=== PATIENT | female | born 1970 | race Caucasian/White ===

== ENCOUNTER 2025-06-22 13:26 | Emergency (ER) | payer OTHER, MEDICAID, SELFPAY ==
--- NOTE | ~2025-06-22 | CT_ITS ---
EXAMINATION: CT abdomen pelvis wo con DATE: 06/22/2025 15:01 INDICATION: Clogged nephrostomy tube TECHNIQUE: Computed tomography (CT) of the abdomen and pelvis was performed without intravenous contr ast. Automated exposure control and iterative reconstruction technique were employed. The dose-length product was 364.52 mGy-cm. COMPARISON: None. FINDINGS: Lower thorax: Displaced surgical clip over the dome of the liver. Liver: Normal. Biliary/Gallbladder: Gallbladder is normal. No bile duct dilation. Pancreas: 2 mm calcification in the head of the pancreas, may be secondary to chronic pancreatitis. N o bile or pancreatic duct dilation to suggest choledocholithiasis. Spleen: Normal. Adrenals:No mass. Kidneys: Right renal atrophy and perinephric stranding. Percutaneous right nephrostomy tube, pigtail projects over the inferior pelvis or an inferior calyx. Severe pelviectasis and ureterectasis on the right. GI tract: Mild distal esophageal wall edema and antral thickening. No small or large bowel dilation. Normal appendix. Diverticulosis without diverticulitis. Mesentery/Peritoneum: No ascites, mass, or free air. Retroperitoneum: No mass. Pelvis: Empty urinary bladder. Right adnexal tubal ligation clips. Normal uterus and bilateral ovarie s. 3 mm constipation projecting over the distal right ureter. Punctate calcification in the region of the right UVJ. Soft Tissues: Small uncomplicated fat-containing umbilical hernia. Bones: No acute osseous finding. IMPRESSION: Mild esophagitis/gastritis. Surgical clip over the dome of the liver, likely displaced left tubal ligation clip. Right percutaneous nephrostomy tube, pigtail appears to reside within the inferior pelvis or an infer ior calyx. Severe right hydronephrosis, suggesting tube dysfunction. 2 mm and punctate calcifications in the distal right ureter and UVJ respectively. Reviewed, dictated and finalized at location K. IMPRESSION: Mild esophagitis/gastritis. Surgical clip over the dome of the liver, likely displaced left tubal ligation clip. Right percutaneous nephrostomy tube, pigtail appears to reside within the infer ior pelvis or an inferior calyx. Severe right hydronephrosis, suggesting tube d ysfunction. 2 mm and punctate calcifications in the distal right ureter and UVJ respectivel y.
[2025-06-22 13:31] VITALS: BP 150/81; PULSE 66; RESP 18; TEMP 36.8; O2SAT 100
--- NOTE | 2025-06-22 14:06 | ED_ITS ---
HPI - General Adult General Chief complaint: Urogenital-Female Stated complaint: Clogged nephrostomy Time Seen by Provider: 06/22/25 14:05 Source: patient Mode of arrival: ambulatory Limitations: no limitations History of Present Illness HPI narrative: 54 years old white female came to the ED by private car complaining of right nephrostomy tube is not draining noticed this morning. Patient from [place], history of right kidney cancer, nephrostomy tube since 2019. History of intermittent obstruction of the tube in the last few years. Currently patient complaining of pain at right flank and abdomen, associated with nausea, no fever or chills Related Data Allergies Allergy/AdvReac Type Severity Reaction Status Date / Time No Known Allergies Allergy Verified 06/22/25 13:27 Review of Systems 2 Review of Systems: All systems reviewed & are unremarkable except as noted in HPI and below Exam 2 Narrative: General appearance: Well-developed, well-nourished Skin: Normal color Head: Normocephalic, nontraumatic Eyes: Clear conjunctiva ENT: Oropharynx normal, ears normal, nose normal Neck: Supple, nontender Chest and respiratory: Airway patent, no respiratory distress, no accessory muscle use Heart: Regular rate/rhythm Abdomen: Soft, tenderness right lower quadrant and right flank, nephrostomy tube in place, no organomegaly, quiet bowel sounds . Musculoskeletal: Normal range of motion, nontender back Neurologic: Alert and oriented ?3, [employer] is normal as tested, no gross motor deficit Course Vital Signs Vital signs: Vital Signs Temperature 36.8 C 06/22/25 13:31 Pulse Rate 66 06/22/25 13:31 Respiratory Rate 18 06/22/25 13:31 Blood Pressure 150/81 H 06/22/25 13:31 Pulse Oximetry 100 06/22/25 13:31 Oxygen Delivery Room Air 06/22/25 13:31 Temperature 36.8 C 06/22/25 13:31 Pulse Rate 66 06/22/25 13:31 Respiratory Rate 18 06/22/25 13:31 Blood Pressure 150/81 H 06/22/25 13:31 Pulse Oximetry 100 06/22/25 13:31 Oxygen Delivery Room Air 06/22/25 13:31 Procedures Other Procedure Procedure 1: Other Procedure: Nephrostomy tube obstruction 10 cc normal saline irrigation, followed by aspiration 30 cc of urine, immediate relief of pain at the right flank area, patient tolerated the procedure well, the tube was connected to the bag and good urine draining. Medical Decision Making MDM Narrative Medical decision making narrative: Patient came with right nephrostomy tube obstruction 10 cc normal saline irrigation, with good outcome Patient tolerated the procedure well, complete relieve of the right flank and right abdominal pain immediately. The pt was discharged to home.the pt,s condition upon discharge was fair,education was provided to the pt in reference to the final impression,discharge study results,treatment,prognosis and need for follow up . Vital Signs Vital Signs: Vital Signs Temperature 36.8 C 06/22/25 13:31 Pulse Rate 66 06/22/25 13:31 Respiratory Rate 18 06/22/25 13:31 Blood Pressure 150/81 H 06/22/25 13:31 Pulse Oximetry 100 06/22/25 13:31 Oxygen Delivery Room Air 06/22/25 13:31 Temperature 36.8 C 06/22/25 13:31 Pulse Rate 66 06/22/25 13:31 Respiratory Rate 18 06/22/25 13:31 Blood Pressure 150/81 H 06/22/25 13:31 Pulse Oximetry 100 06/22/25 13:31 Oxygen Delivery Room Air 06/22/25 13:31 Lab Data 06/22/25 14:07 06/22/25 14:07 Labs: Lab Results 06/22/25 Range/Units 14:07 WBC 8.2 (4.5-10.0) K/mm3 RBC 4.27 (4.2-5.4) M/mm3 Hgb 11.9 L (12.0-15.0) g/dL Hct 37.3 (37.0-47.0) % MCV 87.4 (80-100) fl MCH 27.9 (26-34) pg MCHC 31.9 L (32-36) g/dl RDW 13.9 (11.5-14.5) % Plt Count 315 (150-375) k/mm3 MPV 8.5 (7.4-10.4) fl Immature Gran % (Auto) 0.4 (0-0.5) % Neut % (Auto) 73.8 H (45.5-73.1) % Lymph % (Auto) 16.6 L (18.3-44.2) % [place] % (Auto) 8.0 (2.6-8.5) % Eos % (Auto) 0.7 (0-4.4) % Baso % (Auto) 0.5 (0.2-1.2) % Lymph # (Auto) 1.35 (0.9-3.2) K/mm3 [place] # (Auto) 0.7 H (0.1-0.6) K/mm3 Eos # (Auto) 0.1 (0-0.3) K/mm3 Baso # (Auto) 0.0 (0.0-0.1) K/mm3 Abs Immat Gran (auto) 0.03 (0.00-0.031) K/mm3 Absolute Neuts (auto) 6.0 (1.3-6.7) K/mm3 Absolute Nucleated RBC 0.000 (0.0-0.012) K/mm3 Nucleated RBC % 0.0 (0.0-0.2) % Sodium 139 (137-145) mmol/L Potassium 4.2 (3.4-5.0) mmol/L Chloride 105 (98-107) mmol/L Carbon Dioxide 25 (22-30) mmol/L Anion Gap 9 (4-12) mmol/L BUN 14 (7-17) mg/dL Creatinine 1.21 H (0.7-1.0) mg/dL Estim Creat Clear Calc 43 ml/min Estimated GFR 46 L (59 - ) Glucose 116 H (65-110) mg/dL Calcium 8.9 (8.4-10.2) mg/dL Total Bilirubin 0.5 (0.2-1.3) mg/dL AST 24 (14-36) U/L ALT 16 (6-35) U/L Alkaline Phosphatase 72 (38-126) U/L Total Protein 7.3 (6.3-8.2) g/dL Albumin 4.2 (3.5-5.1) g/dL Urine Color Yellow (Yellow) Urine Appearance Clear (Clear) Urine pH 6.0 (5.0-9.0) Ur Specific [place] 1.009 (1.001-1.035) Urine Protein Negative (Negative) mg/dL Urine Glucose (UA) Negative (Negative) mg/dL Urine Ketones Negative (Negative) mg/dL Ur Blood (Man) Negative (Negative) Urine Nitrate Negative (Negative) Urine Bilirubin Negative (Negative) Urine Urobilinogen 0.2 (<2.0) mg/dL Leukocyte Esterase Rfl Trace H (Negative) [place]/UL Urine RBC 0-2 (0-2) /hpf Urine WBC 0-5 (0-3) /hpf Ur Squamous Epith Cells None seen (Few) /hpf Urine Bacteria None seen /hpf Urine Casts 0-2 Critical Care Time Critical Care Time Critical Care Time: No Discharge Plan Discharge Clinical Impression: Obstructed nephrostomy tube Patient Disposition: Home Condition: Improved Instructions: Nephrostomy Tube Care (ED) Additional Instructions: Return if symptoms are worsening , call your family physician for appointment, take Tylenol as as needed for aches and pain, continue home medications. Patient Language: Monegasque Follow-up/Referrals: PHYSICIAN NOT ON STAFF,NONSTAFF [Primary Care Provider] -
[2025-06-22 14:14] LABS: Hematocrit 37.3 % (37.0-47.0); Hemoglobin 11.9 g/dL (12.0-15.0); Immature Granulocyte Percent A 0.4 % (0-0.5); Lymphocytes Absolute Auto 1.35 K/mm3 (0.9-3.2); Mean Corpuscular HGB Conc 31.9 g/dl (32-36); Mean Corpuscular Hemoglobin 27.9 pg (26-34); Mean Corpuscular Volume 87.4 fl (80-100); Nucleated Red Blood Cells Absolute Auto 0.000 K/mm3 (0.0-0.012); Nucleated Red Blood Cells Perc 0.0 % (0.0-0.2); Platelet Count Result 315 k/mm3 (150-375); Red Blood Count 4.27 M/mm3 (4.2-5.4); White Blood Count 8.2 K/mm3 (4.5-10.0)
[2025-06-22 14:17] LABS: Add Urine Microscopic? YES; Appearance Urine Clear (Clear); Glucose Urine UA Negative (Negative); Leukocyte Esterase Ur Trace LEU/UL (Negative); Nitrate Urine Negative (Negative); Non Pathogenic Casts 0-2; Specific Grav Ur 1.009 (1.001-1.035)
--- OUTSIDE RECORDS SUMMARY | 2025-06-22 14:17 | XMS_ITS | Continuity of Care Document ---
Author Name [facility] Address [address] [place] [address] Organization [facility] Care Team Providers Care Director Operations Broadcast Name Role Phone [facility] Unavailable Unavailable Problems Problem Status Onset Date Problem Type Date of Resolution Comments Source Essential hypertension (disorder) 5 Diagnosis Urinary tract infectious disease (disorder) 5 Diagnosis Pyuria (finding) 4 Diagnosis Abdominal pain (finding) Resolved Condition Abnormal uterine bleeding (disorder) Active Condition Anemia (disorder) Resolved Condition Chronic kidney disease stage 3 (disorder) Active Condition Constipation (disorder) Resolved Condition Abnormal ECG (finding) Active Condition Fatigue (finding) Active Condition Hypertensive disorder, systemic arterial (disorder) Active Condition Malignant melanoma (disorder) Resolved Condition Excised in 2008 Malignant tumor of cervix (disorder) Active Condition Mixed anxiety and depressive disorder (disorder) Active Condition Multiple joint pain (finding) Active Condition Muscle weakness (finding) Active Condition Pain of left shoulder region Active Condition Patient encounter status (finding) Active Condition Precordial pain (finding) Resolved Condition Premenstrual dysphoric disorder (disorder) Active Condition Recurrent major depressive episodes, mild (disorder) Active Condition Right flank pain (finding) Active Condition Stoma finding (finding) Active Condition Urinary tract infectious disease (disorder) Resolved Condition Bleeding from vagina (finding) Resolved Condition Verruca plantaris (disorder) Active Condition Generalized anxiety disorder (disorder) Active Condition Depressive disorder (disorder) Active Condition Malignant tumor of cervix (disorder) Diagnosis Mild recurrent major depression (disorder) Diagnosis Procedure carried out on subject (situation) Diagnosis Finding of stoma device (finding) Diagnosis Pain of left shoulder joint (finding) Diagnosis Chronic kidney disease stage 3 (disorder) Diagnosis Long-term current use of drug therapy (situation) Diagnosis Abdominal pain (finding) Diagnosis Surgical follow-up (finding) Diagnosis Encounter for fitting and adjustment of other specified devices Active Diagnosis Malignant neoplasm of cervix uteri, unspecified Active Diagnosis Encounter for fitting and adjustment of other gastrointestinal appliance and device Active Diagnosis Other mechanical complication of nephrostomy catheter, initial encounter Active Diagnosis Encounter for fitting and adjustment of urinary device Active Diagnosis Chronic kidney disease due to hypertension (disorder) Diagnosis Verruca plantaris (disorder) Diagnosis Muscle weakness (finding) Diagnosis Premenstrual dysphoric disorder (disorder) Diagnosis Unspecified abdominal pain Active Diagnosis Encounter for change or removal of drains Active Diagnosis Encounter for attention to other artificial openings of urinary tract Active Diagnosis Procedure carried out on subject (situation) Diagnosis Procedure not done (context-dependent category) Diagnosis Crossing vessel and stricture of ureter without hydronephrosis Active Diagnosis Intra-abdominal and pelvic swelling, mass and lump, unspecified site Active Diagnosis 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) Diagnosis Hydronephrosis with ureteral stricture, not elsewhere classified Active Diagnosis Procedure and treatment not carried out, unspecified reason Active Diagnosis Abnormal ECG (finding) Diagnosis 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) Diagnosis Hydronephrosis (disorder) Diagnosis Urgent desire to urinate (finding) Diagnosis Hydronephrosis (disorder) Diagnosis Disease of bladder (disorder) Diagnosis Abnormal uterine bleeding (disorder) Diagnosis History of urinary tract infection (situation) Diagnosis Procedure carried out on subject (situation) Diagnosis Mechanical complication of genitourinary device (disorder) Diagnosis Leakage from urinary catheter (disorder) Diagnosis Serious reportable event associated with product or device (event) Diagnosis Place of occurrence of accident or poisoning (environment) Diagnosis Acute cystitis (disorder) Diagnosis Bacterial infection due to Pseudomonas (disorder) Diagnosis Bacterial infectious disease (disorder) Diagnosis Serious reportable event associated with product or device (event) Diagnosis Injury due to exposure to external cause (disorder) Diagnosis Drug allergy (disorder) Diagnosis History of malignant neoplasm of cervix (situation) Diagnosis Pyonephrosis (disorder) Diagnosis Complication of procedure (disorder) Diagnosis Anxiety disorder (disorder) Diagnosis Exposure to potentially harmful entity (event) Diagnosis Active movement, function (observable entity) Diagnosis Medications Medication Details Route Status Patient Instructions Ordering Provider Order Date Source Acetaminophen 325 MG / Hydrocodone Bitartrate 5 MG Oral Tablet 1 Tablet(s), Oral, q6h, Scheduled / PRN PRN Pain, Moderate, Refill(s) 0 Active 024 [facility] Allergies, Adverse Reactions, Alerts Substance Category Reaction Severity Reaction type Status Date Reported Comments Source Rocephin Assertion Hives Drug allergy Active [facility] Results Order Name Results Value Reference Range Date Interpretation Comments Source MRI Pelvis MRI Pelvis MRI/MRA Accession # Exam Date/Time Procedure Ordering Provider [id number] 06/13/2025 11:37 CDT MRI Pelvis Cherelle ZHENG, Belinda Davies Reason For Exam (MRI Pelvis) concern for mass on CT Report EXAMINATIO N: MRI of the pelvis without and with IV contrast INDICATION : concern for mass on CT COMPARISON : CT abdomen and pelvis 08/02/2019, 06/07/2023, PET/CT 03/09/2021, 05/13/2020. No recent additional imaging is available for comparison . TECHNIQUE: Multiplana r, multi-sequ ence MRI examinatio n of the pelvis was performed. Contrast agent: Clariscan FINDINGS: UTERUS: Age-approp riate anteverted uterus. Postradiat ion changes in the region of the cervix. No definite cervical mass. No abnormal endometria l thickening . OVARIES/AD NEXA: A 1.5 cm left adnexal cyst. No suspicious adnexal mass. BLADDER/PE LVIC WALL: * In the right pelvis, there is an ill-define d T2 hypointens ity that tracks along the distal right ureter to the right posterolat eral urinary bladder wall (02/22, 01/22). This measures up to 2.3 cm and demonstrat es progressiv e postcontra st enhancemen t that is most pronounced on the delayed phase images (/40), without associated restricted diffusion. Overall findings are suggestive of post radiation changes/fi brosis. Of note, this area has not significan tly changed in size compared to the CT from June 2023 or the PET/CT from March 2021. * Mild irregulari ty of the overlying right posterolat eral bladder wall (-) . * The partially imaged distal right ureter is mildly prominent with mild urothelial thickening . PERITONEUM /EXTRAPERI TONEUM: Trace fluid in the pelvis. LYMPH NODES: No pelvic lymphadeno deidra. VISUALIZED BOWEL: Nondilated . Few colonic diverticul a without findings of acute diverticul itis. VASCULAR STRUCTURES : Unremarkab le. BONES: No suspicious osseous lesion. Postradiat ion bone marrow changes. Sequelae of sacral insufficie ncy fractures. IMPRESSION : 1. Ill-define d T2 hypointens ity in the the right pelvis tracking along the distal right ureter to the right posterolat eral bladder wall MRI/MRA Report which has not changed in size compared to the CT from 2022. Overall MR findings suggestive of fibrotic/p ost radiation changes. Short-term follow-up with PET/CT could be obtained if clinically warranted. 2. Mild irregulari ty of the overlying right posterolat eral urinary bladder wall. Cystoscopi c correlatio n could be obtained. 3. Postradiat ion changes in the region of the cervix. No discrete cervical mass. 4. Other chronic/in cidental findings as detailed in the body of the report. I have personally reviewed the images and attest to the contents of this report. * * *Final Report* * * Electronic ally Signed by: Mervat Fuentes MD Signed on: 06/15/25 18:30 06/13 11:00 :28 [facility] Diagnostic Imaging NextGen IR Nephrostom y Tube Exchange IR Nephrostomy Tube Exchange Interventi onal/Angio Accession # Exam Date/Time Procedure Ordering Provider [id number] 05/31/2025 09:58 CDT IR Nephrostom y Tube Cherelle ZHENG, Belinda Davies Reason For Exam (IR Nephrostom y Tube Exchange) Neph tube exchange Report INDICATION : Obstructiv e uropathy TECHNIQUE: Dilute Visipaque- 320 contrast media are instilled into the existing right 10 [place] nephrostom y tube. Wire was advanced. The tube was removed. A new 10 [place] nephrostom y tube was advanced over the wire and placed in the renal pelvis. Tube was connected to a gravity dependent bag. Patient tolerated procedure well without complicati on. Fluoroscop y time used: 28 seconds IMPRESSION : Fluoroscop ic guided exchange of 10 [place] right nephrostom y tube. No complicati on. * * *Final Report* * * Electronic ally Signed by: Didier Lopez MD Signed on: 05/31/25 19:50 05/31 09:58 :00 [facility] Culture Urine 10,000-49, 000 CFU/ml Serratia marcescens - See susceptibi lity report - 100-1000 CFU/ml Pseudomona s aeruginosa - See susceptibi lity report - 1000-10,00 0 CFU/ml Streptococ cus equi/equis imilis - Sensitivit y Not Indicated 04/11 18:01 :00 [facility] Pseudomonas aeruginosa Pseudomona s aeruginosa 04/11 18:01 :00 [facility] Serratia marcescens Serratia marcescens 04/11 18:01 :00 [facility] IR Nephrostom y Tube Exchange IR Nephrostomy Tube Exchange Interventi onal/Angio Accession # Exam Date/Time Procedure Ordering Provider [id number] 04/11/2025 12:42 CDT IR Nephrostom y Tube Fernandalk Macy PACHECO Exchange Reason For Exam (IR Nephrostom y Tube Exchange) obstructed chronic neph tube Report INDICATION : Obstructed right nephrostom y tube TECHNIQUE: The risk, benefits, and alternativ es of the procedure explained to the patient. Informed written consent was obtained. The patient has had a right nephrostom y tube for approximat thiago 5 years with every 3 month exchanges performed at . Patient has had no drainage from the right nephrostom y tube and recent CT scan that demonstrat es severe hydrourete ronephrosi s with adequate position of the nephrostom y tube. The patient states that several times the nephrostom y tube has had debris and partial clotting with decreased output which improved with exchange. Antegrade nephrostog sunita using Visipaque- 320 contrast media demonstrat es patent tube but requiring forced pressure. Numerous wires including Bentson, Amplatz superstiff , and angled glide are used to try to break up the internal debris without success. Therefore, a Glidewire and glide catheter were advanced through the percutaneo us entry tract along the nephrostom y tube. A new 8 [place] nephrostom y tube was advanced adjacent to the existing tube. Suture from the original nephrostom y tube was cut. The tube was removed with forced pressure under fluoroscop ic guidance. A new 10 [place] nephrostom y tube was placed with the tip coiled in the renal pelvis. The hydronephr osis was evacuated. The tube was secured to the skin with 2-0 silk suture and adhesive dressing. The patient tolerated procedure well without complicati on. Fluoroscop y time used: 9 minutes 24 seconds IMPRESSION : 1. Fluoroscop ic guided exchange of the existing 8 [place] right nephrostom y tube with a 10 [place] nephrostom y tube with tip placed in the renal pelvis. No complicati on. 2. Antegrade nephrostog sunita demonstrat es severe right hydrourete ronephrosi s. 3. Milky, cloudy urine returned and was sent to microbiolo gy. 4. Wire could not be advanced through the existing 8 [place] nephrostom y tube secondary to debris. Therefore, new tube was placed along the percutaneo us entry tract and existing nephrostom y tube was removed with more than gentle pulling. No complicati on. * * *Final Report* * * Electronic ally Signed by: Jessica ZHENG, Didier James Signed on: 04/11/25 16:23 04/11 11:54 :59 [facility] GENERAL CHEMISTRY Estimated GFR for Adults 47 mL/min/1.7 3m 04/11 09:17 :30 Result Comment: The eGFR was estimated using the CKD-EPI equation. The National Kid[employer] recommends that all clinical labs utilize this equation: Scar , Shon LA, Hussein CH, et al. A new equation to estimate glomerular filtration rate. Claire Imaging Science Professor Med. 2009;150(9):6 04-612. For calculation reference see https://www.k dcney.org/pro fessionals/kd oqi/gfr_calcu lator Interpretive Data: Changed to CKD-EPI 2020 on 2020. [facility] GENERAL CHEMISTRY Calcium 8.1 mg/dL 8.3 - 10.6 04/11 09:17 :30 [facility] GENERAL CHEMISTRY Glucose Lvl 102 mg/dL 04/11 09:17 :30 Interpretive Data: No reference ranges have been established for random glucose levels. [facility] GENERAL CHEMISTRY Creatinine, standardized 1.32 mg/dL 0.55 - 1.02 04/11 09:17 :30 [facility] GENERAL CHEMISTRY BUN 18 mg/dL 9 - 04/11 09:17 :30 [facility] GENERAL CHEMISTRY CO2 24.0 mmol/L 20.0 - 31.0 04/11 09:17 :30 [facility] GENERAL CHEMISTRY Chloride 109.0 mmol/L 98.0 - 109.0 04/11 09:17 :30 [facility] GENERAL CHEMISTRY Sodium 140 mmol/L 136 - 145 04/11 09:17 :30 [facility] GENERAL CHEMISTRY Potassium 4.0 mmol/L 3.5 - 5.1 04/11 09:17 :30 [facility] GENERAL CHEMISTRY Anion gap 7 mmol/L 5 - 15 04/11 09:17 :30 [facility] HEMATOLOGY PROFILES MPV 8.9 fL 9.0 - 12.0 04/11 09:17 :30 [facility] HEMATOLOGY PROFILES PLT 216 x10(9)/L 135 - 400 04/11 09:17 :30 [facility] HEMATOLOGY PROFILES RDW CV 14.2 % 11.5 - 14.5 04/11 09:17 :30 [facility] HEMATOLOGY PROFILES MCHC 31.8 g/dL 30.4 - 36.7 04/11 09:17 :30 [facility] HEMATOLOGY PROFILES MCH 28.5 pg 28.0 - 33.0 04/11 09:17 :30 [facility] HEMATOLOGY PROFILES MCV 89.5 fL 81.0 - 96.5 04/11 09:17 :30 [facility] HEMATOLOGY PROFILES HCT 34.9 % 34.5 - 47.0 04/11 09:17 :30 [facility] HEMATOLOGY PROFILES HGB 11.1 g/dL 12.0 - 16.0 04/11 09:17 :30 [facility] HEMATOLOGY PROFILES RBC 3.90 x10(12)/L 4.20 - 5.00 04/11 09:17 :30 [facility] HEMATOLOGY PROFILES WBC 12.71 x10(9)/L 4.80 - 10.80 04/11 09:17 :30 [facility] HEMATOLOGY PROFILES Absolute Neutrophils 10.27 x10(9)/L 1.40 - 6.50 04/11 09:17 :30 [facility] HEMATOLOGY PROFILES % Neutrophils 80.8 % 04/11 09:17 :30 [facility] HEMATOLOGY PROFILES % Monocytes 8.4 % 04/11 09:17 :30 [facility] HEMATOLOGY PROFILES Abs Lymphocytes 1.28 x10(9)/L 1.20 - 3.40 04/11 09:17 :30 [facility] HEMATOLOGY PROFILES % Lymphocytes 10.1 % 04/11 09:17 :30 [facility] HEMATOLOGY PROFILES Abs Immature Granulocytes 0.04 x10(9)/L 0.00 - 0.03 04/11 09:17 :30 [facility] HEMATOLOGY PROFILES % Immature Granulocytes 0.3 % 04/11 09:17 :30 [facility] HEMATOLOGY PROFILES Abs Basophils 0.02 x10(9)/L 0.00 - 0.10 04/11 09:17 :30 [facility] HEMATOLOGY PROFILES % Basophils 0.2 % 04/11 09:17 :30 [facility] HEMATOLOGY PROFILES Abs Eosinophils 0.03 x10(9)/L 0.00 - 0.30 04/11 09:17 :30 [facility] HEMATOLOGY PROFILES % Eosinophils 0.2 % 04/11 09:17 :30 [facility] HEMATOLOGY PROFILES Abs Monocytes 1.07 x10(9)/L 0.00 - 1.00 04/11 09:17 :30 [facility] Culture Urine >100,000 CFU/ml Serratia marcescens #2 - See susceptibi lity report - 50,000-100 ,000 CFU/ml Serratia marcescens - See susceptibi lity report 04/10 22:31 :00 [facility] Serratia marcescens Serratia marcescens 04/10 22:31 :00 [facility] Culture UrineX >100,000 CFU/ml Gram negative rods - Identifica tion and susceptibi lity to follow. 04/10 22:31 :00 [facility] GENERAL CHEMISTRY Calcium 9.1 mg/dL 8.3 - 10.6 04/10 22:02 :00 [facility] GENERAL CHEMISTRY Estimated GFR for Adults 45 mL/min/1.7 3m 04/10 22:02 :00 Result Comment: The eGFR was estimated using the CKD-EPI equation. The National Kidney Foundation recommends that all clinical labs utilize this equation: Scar , Shon LA, Hussein CH, et al. A new equation to estimate glomerular filtration rate. Claire Imaging Science Professor Med. 2009;150(9):6 04-612. For calculation reference see https://www.[facility].org/pro fessionals/kd oqi/gfr_calcu lator Interpretive Data: Changed to CKD-EPI 2020 on 2020. [facility] GENERAL CHEMISTRY Potassium 4.3 mmol/L 3.5 - 5.1 04/10 22:02 :00 [facility] GENERAL CHEMISTRY Sodium 141 mmol/L 136 - 145 04/10 22:02 :00 [facility] GENERAL CHEMISTRY Anion gap 7 mmol/L 5 - 15 04/10 22:02 :00 [facility] GENERAL CHEMISTRY Creatinine, standardized 1.38 mg/dL 0.55 - 1.02 04/10 22:02 :00 [facility] GENERAL CHEMISTRY Glucose Lvl 102 mg/dL 04/10 22:02 :00 Interpretive Data: No reference ranges have been established for random glucose levels. [facility] GENERAL CHEMISTRY BUN 19 mg/dL 9 - 23 04/10 22:02 :00 [facility] GENERAL CHEMISTRY Chloride 108.0 mmol/L 98.0 - 109.0 04/10 22:02 :00 [facility] GENERAL CHEMISTRY CO2 26.0 mmol/L 20.0 - 31.0 04/10 22:02 :00 [facility] HEMATOLOGY PROFILES Abs Eosinophils 0.01 x10(9)/L 0.00 - 0.30 04/10 22:02 :00 [facility] HEMATOLOGY PROFILES % Basophils 0.2 % 04/10 22:02 :00 [facility] HEMATOLOGY PROFILES Abs Basophils 0.03 x10(9)/L 0.00 - 0.10 04/10 22:02 :00 [facility] HEMATOLOGY PROFILES % Neutrophils 85.1 % 04/10 22:02 :00 [facility] HEMATOLOGY PROFILES Absolute Neutrophils 11.62 x10(9)/L 1.40 - 6.50 04/10 22:02 :00 [facility] HEMATOLOGY PROFILES % Immature Granulocytes 0.4 % 04/10 22:02 :00 [facility] HEMATOLOGY PROFILES Abs Immature Granulocytes 0.06 x10(9)/L 0.00 - 0.03 04/10 22:02 :00 [facility] HEMATOLOGY PROFILES % Lymphocytes 7.1 % 04/10 22:02 :00 [facility] HEMATOLOGY PROFILES Abs Lymphocytes 0.97 x10(9)/L 1.20 - 3.40 04/10 22:02 :00 [facility] HEMATOLOGY PROFILES % Monocytes 7.1 % 04/10 22:02 :00 [facility] HEMATOLOGY PROFILES Abs Monocytes 0.97 x10(9)/L 0.00 - 1.00 04/10 22:02 :00 [facility] HEMATOLOGY PROFILES % Eosinophils 0.1 % 04/10 22:02 :00 [facility] HEMATOLOGY PROFILES RBC 4.36 x10(12)/L 4.20 - 5.00 04/10 22:02 :00 [facility] HEMATOLOGY PROFILES HGB 12.6 g/dL 12.0 - 16.0 04/10 22:02 :00 [facility] HEMATOLOGY PROFILES HCT 38.9 % 34.5 - 47.0 04/10 22:02 :00 [facility] HEMATOLOGY PROFILES MCV 89.2 fL 81.0 - 96.5 04/10 22:02 :00 [facility] HEMATOLOGY PROFILES MCH 28.9 pg 28.0 - 33.0 04/10 22:02 :00 [facility] HEMATOLOGY PROFILES MCHC 32.4 g/dL 30.4 - 36.7 04/10 22:02 :00 [facility] HEMATOLOGY PROFILES RDW CV 13.9 % 11.5 - 14.5 04/10 22:02 :00 [facility] HEMATOLOGY PROFILES PLT 248 x10(9)/L 135 - 400 04/10 22:02 :00 [facility] HEMATOLOGY PROFILES MPV 8.9 fL 9.0 - 12.0 04/10 22:02 :00 [facility] HEMATOLOGY PROFILES WBC 13.66 x10(9)/L 4.80 - 10.80 04/10 22:02 :00 [facility] URINALYSIS UA Epithelial Cells 0-10 /lpf 0 - 10 04/10 22:02 :00 [facility] URINALYSIS UA Mucous Present /lpf 04/10 22:02 :00 [facility] URINALYSIS UA Bacteria Few /Hpf 04/10 22:02 :00 [facility] URINALYSIS WBC >100 /Hpf 0 - 5 04/10 22:02 :00 [facility] URINALYSIS RBC 0-5 /Hpf 0 - 5 04/10 22:02 :00 [facility] URINALYSIS COLOR [place] ow *NA* (04/10/25 5:02 PM) 04/10 22:02 :00 [facility] URINALYSIS CLARITY Turbid *ABNORMAL* (04/10/25 5:02 PM) 04/10 22:02 :00 [facility] URINALYSIS SPECIFIC GRAVITY 1.007 1.001 - 1.029 04/10 22:02 :00 [facility] URINALYSIS UA BLOOD Trace 04/10 22:02 :00 [facility] URINALYSIS BILIRUBIN Negative mg/dL 04/10 22:02 :00 [facility] URINALYSIS UA KETONES Negative mg/dL 04/10 22:02 :00 [facility] URINALYSIS UA GLUCOSE Negative mg/dL 04/10 22:02 :00 [facility] URINALYSIS UA LEUKOCYTES Large /Hpf 04/10 22:02 :00 [facility] URINALYSIS UA UROBILINOGEN <=1 mg/dL 04/10 22:02 :00 [facility] URINALYSIS UA NITRITE Negative *NA* (04/10/25 5:02 PM) 04/10 22:02 :00 [facility] URINALYSIS UA PH 5.5 *NA* (04/10/25 5:02 PM) 5.0 - 8.0 04/10 22:02 :00 [facility] URINALYSIS UA PROTEIN Negative mg/dL 04/10 22:02 :[address] [facility] [address] Abdomen and Pelvis w/ Contrast CT Abdomen and Pelvis w/ Contrast CT Scan/CT Angio Accession # Exam Date/Time Procedure Ordering Provider [id number] 04/10/2025 18:[address] Abdomen and Pelvis w/ Glao Shaun HYATT Contrast Reason For Exam (CT Abdomen and Pelvis w/ Contrast) R nephrostom y tube placement Report PROCEDURE INFORMATIO N: Exam: CT Abdomen And Pelvis With Contrast Exam date and time: 04/10/2025 6:01 PM Age: 54 years old Clinical indication : RT flank pain since am, PT has a RT neph tube placed in 2019-most recently replaced 2 months ago; Additional info: R nephrostom y tube placement TECHNIQUE: Imaging protocol: Computed tomography of the abdomen and pelvis with contrast. Radiation optimizati on: All CT scans at this facility use at least one of these dose optimizati on techniques : automated exposure control; mA and/or kV adjustment per patient size (includes targeted exams where dose is matched to clinical indication ); or iterative reconstruc tion. Contrast material: VISI 320; Contrast volume: 75 ml; Contrast route: INTRAVENOU S (IV); COMPARISON : No relevant prior studies available. FINDINGS: Lungs: Visualized lung bases are clear. Liver: There appears to be a surgical clip at the hepatic dome. The liver is otherwise unremarkab le.. Gallbladde r and biliary ducts: No radiopaque stones. No significan t biliary ductal dilatation . Pancreas: Unremarkab le. Spleen: Unremarkab le. Adrenal glands: Unremarkab le. Kidneys and ureters: There is a right-side d percutaneo us nephrostom y tube with the pigtail catheter in the right renal pelvis. There is severe right-side d hydrourete ronephrosi s extending to the level of the bladder. There are several small calcificat ions in the right hemipelvis in the region of the distal ureter, however these do not appear obstructiv e and represent be phlebolith s. There is subtle masslike density in the region of the right ureteroves ical junction, suboptimal ly evaluated due to lack of contrast within the right ureter and urinary bladder. There is right-side d perinephri c stranding. The left kidney is unremarkab le. No focal lesion or significan t hydronephr osis is seen on the left. Stomach and bowel: The stomach is distended with fluid, gastric contents, and air. There are mildly prominent fluid-fill ed small bowel loops in the mid to lower abdomen with a few air-fluid levels.The re is a moderate amount of fecal material throughout the colon.Ther e is no significan t bowel dilatation or evidence for obstructio n. Appendix: No evidence of appendicit is. Intraperit wilson space: There is right-side d perinephri c stranding. There is mild presacral edema. No significan t free fluid. No free air. Vasculatur e: The abdominal aorta is normal in caliber. No abdominal aortic aneurysm. Lymph nodes: Unremarkab le. No enlarged lymph nodes. Urinary bladder: Unremarkab le as visualized . Reproducti ve: The uterus is present. There are 2 metallic clips in the right adnexa which could be related to tubal ligation. CT Scan/CT Angio Report Bones/join ts: Intact. No acute fracture. There is straighten ing of the normal lumbar lordosis. There are degenerati ve changes involving the lumbar and visualized lower thoracic spine. Soft tissues: Unremarkab le. IMPRESSION : 1. Right-side d percutaneo us nephrostom y tube in place with severe right-side d hydrourete ronephrosi s. The ureter is dilated to the level of the urinary bladder with subtle masslike density in the region of the right ureteroves ical junction suspicious for neoplasm. This is suboptimal ly evaluated due to lack of contrast within the bladder and right ureter. Delayed imaging or cystoscopy should be considered . 2. Other chronic findings described above. THIS DOCUMENT HAS BEEN ELECTRONIC ALLY SIGNED BY LAURO HARMON MD on 04/10/2025 07:21 PM * * *Final Report* * * Electronic ally Signed by: EBONI ZHENG, Provider Signed on: 04/10/25 19:21 04/10 17:56 :00 [facility] IR Neph Tube Exchange IR Neph Tube Exchange Interventi onal/Angio Accession # Exam Date/Time Procedure Ordering Provider [id number] 02/15/2025 09:58 CDT IR Neph Tube Exchange Monica Pizarro MD Reason For Exam (IR Neph Tube Exchange) R NT EVAL/EXCHA NGE- BLUE TUBE CRACKED/LE AKING AFTER CHANGING CONNECTION AND DRAINAGE BAG Report PROCEDURE( S), 1. Right nephrostom y tube exchange INDICATION : 54-year-ol d female with leaking/cr acked nephrostom y tube, presenting for exchange COMPARISON : Comparison is made to relevant prior imaging OPERATORS: David Farrell i, MD (attending physician) Gabino Álvarez DO (fellow) CONSENT: The risks and benefits of the procedure as well as alternativ es to the procedure were discussed with the patient prior to bringing the patient to the angiograph y suite. Written and oral consent was obtained. PROCEDURE DETAILS: The patient was brought to the angiograph y suite and positioned prone on the fluoroscop y table. A timeout was completed prior to the procedure according to hospital policy. The right flank was prepped and draped in sterile usual fashion. Local anesthetic was administer ed. Antegrade nephrostog sunita was performed through the indwelling nephrostom y tube which demonstrat ed tube retracted into a lower pole calyx. The indwelling nephrostom y tube was exchanged over a stiff angled Glidewire for a new 8 [place] nephrostom y tube. The locking mechanism of the catheter was engaged. Contrast was instilled confirming appropriat e position of the nephrostom y tube in the renal pelvis. The catheter was secured to the skin using nylon 2-0 suture and connected to gravity drainage. A dressing was applied. The patient was discharged home in stable condition. Post-proce dure complicati on and was transferre d to recovery in stable condition. ESTIMATED BLOOD LOSS: < 15 mL SPECIMENS: None COMPLICATI ONS: None The attending physician was present during all critical and kamara portions of the procedure and immediatel y available to furnish services during the entire procedure. IMPRESSION : 1. Technicall y successful right nephrostom y tube exchange for a new 8 [place] [employer] nephrostom y tube. Interventi onal/Angio Report I have personally reviewed the images and attest to the contents of this report. * * *Final Report* * * Electronic ally Signed by: David Farrell i, MD Signed on: 02/15/25 10:37 02/15 09:34 :53 [facility] IR Neph Tube Exchange IR Neph Tube Exchange Interventi onal/Angio Accession # Exam Date/Time Procedure Ordering Provider [id number] 12/24/2024 12:21 [employer] IR Neph Tube Exchange Johnnie Cortes MD Reason For Exam (IR Neph Tube Exchange) R NT EXCHANGE- ROUTINE Report PROCEDURE( S), 1. Right nephrostom y tube exchange INDICATION : Patient presents to interventi onal radiology for routine nephrostom y tube exchange. COMPARISON : Comparison is made to relevant prior imaging OPERATORS: Attending Physician: Shirley Duncan MD Resident Physician: None CONSENT: The risks and benefits of the procedure as well as alternativ es to the procedure were discussed with the patient prior to bringing the patient to the angiograph y suite. Written and oral consent was obtained. PROCEDURE DETAILS: The patient was brought to the angiograph y suite and positioned prone on the fluoroscop y table. A timeout was completed prior to the procedure according to hospital policy. The right flank was prepped and draped in sterile usual fashion. Local anesthetic was administer ed. Antegrade nephrostog sunita was performed through the indwelling nephrostom y tube which demonstrat ed appropriat e positionin g in the renal pelvis. The indwelling nephrostom y tube was exchanged over a stiff angled Glidewire for a new 8 [place] nephrostom y tube. The locking mechanism of the catheter was engaged. Contrast was instilled confirming appropriat e position of the nephrostom y tube in the renal pelvis. Right antegrade nephrostog sunita was performed demonstrat ing unchanged occlusion of the distal right ureter. No evidence of contrast passing beyond this ureteral occlusion into the urinary bladder. The catheter was secured to the skin using nylon 2-0 suture and connected to gravity drainage. A dressing was applied. The patient tolerated the procedure well without evidence of immediate post-proce dure complicati on and was transferre d to recovery in stable condition. ESTIMATED BLOOD LOSS: < 15 mL SPECIMENS: None COMPLICATI ONS: None IMPRESSION : 1. Technicall y successful right nephrostom y tube exchange for a new 8 [place] [employer] nephrostom y tube. I have personally reviewed the images and attest to the contents of Interventi onal/Angio Report this report. * * *Final Report* * * Electronic ally Signed by: Kristen Duncan MD Signed on: 12/24/24 15:30 12/24 11:49 :00 [facility] IR Neph Tube Exchange IR Neph Tube Exchange Interventi onal/Angio Accession # Exam Date/Time Procedure Ordering Provider [id number] 09/12/2024 11:31 [employer] MA[employer] IR Neph Tube Exchange Sebastian ZHENG, Johnnie Yusuf Reason For Exam (IR Neph Tube Exchange) NEPHROSTOG SUNITA + R NT EXCHANGE Report PROCEDURE( S), 1. Right nephrostom y tube exchange INDICATION : Patient presents to interventi onal radiology for routine nephrostom y tube exchange. COMPARISON : Comparison is made to relevant prior imaging OPERATORS: Attending Physician: Monica Pizarro MD Resident Physician: None CONSENT: The risks and benefits of the procedure as well as alternativ es to the procedure were discussed with the patient prior to bringing the patient to the angiograph y suite. Written and oral consent was obtained. PROCEDURE DETAILS: The patient was brought to the angiograph y suite and positioned prone on the fluoroscop y table. A timeout was completed prior to the procedure according to hospital policy. The right flank was prepped and draped in sterile usual fashion. Local anesthetic was administer ed. Antegrade nephrostog sunita was performed through the indwelling nephrostom y tube which demonstrat ed appropriat e positionin g in the renal pelvis. The indwelling nephrostom y tube was exchanged over a stiff angled Glidewire for a new 8 [place] nephrostom y tube. The locking mechanism of the catheter was engaged. Contrast was instilled confirming appropriat e position of the nephrostom y tube in the renal pelvis. Right antegrade nephrostog sunita was performed demonstrat ing unchanged occlusion of the distal right ureter. No evidence of contrast passing beyond this ureteral occlusion into the urinary bladder. The catheter was secured to the skin using nylon 2-0 suture and connected to gravity drainage. A dressing was applied. The patient tolerated the procedure well without evidence of immediate post-proce dure complicati on and was transferre d to recovery in stable condition. ESTIMATED BLOOD LOSS: < 15 mL SPECIMENS: None COMPLICATI ONS: None IMPRESSION : 1. Technicall y successful right nephrostom y tube exchange for a new 8 [place] [employer] nephrostom y tube. 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 Patient reports recurrent pyelonephr itis since she was encouraged to flush the nephrostom y tube regularly. Benefits and risks of flushing the nephrostom y tube were discussed with the patient. Additional ly, Interventi onal/Angio Report alternativ es including frequent nephrostom y tube exchange and/or nephrostom y tube upsize were discussed. The patient requested PRN antibiotic prescripti on as she has had long wait in the ED for treatment of recurrent infections . A PRN quinolone prescripti on was sent to the patient's pharmacy. Risks of fluoroquin olone use including tendon rupture and Janusz sensitivit y were explained to the patient. I have personally reviewed the images and attest to the contents of this report. * * *Final Report* * * Electronic ally Signed by: Juarez ZHENG, Monica Forman Signed on: 09/12/24 11:26 09/12 10:48 :00 [facility] Culture Urine 10,000-49, 000 CFU/ml Pseudomona s aeruginosa - See susceptibi lity report - 10,000-49, 000 CFU/ml Pseudomona s aeruginosa #2 - See susceptibi lity report - Two Morphologi ruben Different Strains 08/19 22:28 :00 [facility] Pseudomonas aeruginosa Pseudomona s aeruginosa 08/19 22:28 :00 [facility] URINALYSIS COLOR Colorless *NA* (08/19/24 5:15 PM) 08/19 22:15 :00 [facility] URINALYSIS CLARITY Clear *NA* (08/19/24 5:15 PM) 08/19 22:15 :00 [facility] URINALYSIS UA GLUCOSE Negative mg/dL 08/19 22:15 :00 [facility] URINALYSIS BILIRUBIN Negative mg/dL 08/19 22:15 :00 [facility] URINALYSIS UA KETONES Negative mg/dL 08/19 22:15 :00 [facility] URINALYSIS SPECIFIC GRAVITY 1.005 1.001 - 1.029 08/19 22:15 :00 [facility] URINALYSIS UA BLOOD Small mg/dL 08/19 22:15 :00 [facility] URINALYSIS UA PH 7.0 *NA* (08/19/24 5:15 PM) 5.0 - 8.0 08/19 22:15 :00 [facility] URINALYSIS UA PROTEIN 30 mg/dL 08/19 22:15 :00 [facility] URINALYSIS UA UROBILINOGEN <=1 mg/dL 08/19 22:15 :00 [facility] URINALYSIS UA NITRITE Negative *NA* (08/19/24 5:15 PM) 08/19 22:15 :00 [facility] URINALYSIS UA LEUKOCYTES Moderate /Hpf 08/19 22:15 :00 [facility] URINALYSIS RBC 0-5 /Hpf 0 - 5 08/19 22:15 :00 [facility] URINALYSIS WBC 31-50 /Hpf 0 - 5 08/19 22:15 :00 [facility] URINALYSIS UA Bacteria Rare /Hpf 08/19 22:15 :00 [facility] URINALYSIS UA Epithelial Cells 0-10 /lpf 0 - 10 08/19 22:15 :00 [facility] URINALYSIS UA Mucous Present /lpf 08/19 22:15 :00 [facility] GENERAL CHEMISTRY T Bili 0.48 mg/dL 0.20 - 1.20 08/19 21:05 :00 [facility] GENERAL CHEMISTRY Anion gap 4 mmol/L 5 - 15 08/19 21:05 :00 [facility] GENERAL CHEMISTRY Potassium 3.9 mmol/L 3.5 - 5.1 08/19 21:05 :00 [facility] GENERAL CHEMISTRY Sodium 139 mmol/L 136 - 145 08/19 21:05 :00 [facility] GENERAL CHEMISTRY Chloride 108 mmol/L 98 - 109 08/19 21:05 :00 [facility] GENERAL CHEMISTRY CO2 27 mmol/L 20 - 08/19 21:05 :00 [facility] GENERAL CHEMISTRY Glucose Lvl 120 mg/dL 08/19 21:05 :00 Interpretive Data: No reference ranges have been established for random glucose levels. [facility] GENERAL CHEMISTRY AST-SGOT 14 U/L 0 - 34 10/13 /2024 21:05 :00 [facility] GENERAL CHEMISTRY ALT-SGPT 15 U/L 10 - 49 08/19 21:05 :00 [facility] GENERAL CHEMISTRY Alkaline Phosphatase 69 U/L 46 - 116 08/19 21:05 :00 [facility] GENERAL CHEMISTRY Total Protein 7.0 g/dL 5.7 - 8.2 08/19 21:05 :00 [facility] GENERAL CHEMISTRY Albumin 4.4 g/dL 3.2 - 4.8 08/19 21:05 :00 [facility] GENERAL CHEMISTRY BUN 14 mg/dL 9 - 23 08/19 21:05 :00 [facility] GENERAL CHEMISTRY Creatinine, standardized 1.40 mg/dL 0.55 - 1.02 08/19 21:05 :00 [facility] GENERAL CHEMISTRY Calcium 8.6 mg/dL 8.3 - 10.6 08/19 21:05 :00 [facility] GENERAL CHEMISTRY GFR for 47 mL/min 08/19 21:05 :00 Interpretive Data: For all ethnicities, normal kidney function is indicated by a value of >60 mL/min/1.73 square meters in patents between 18 and 70 years of age. [facility] GENERAL CHEMISTRY GFR non 39 mL/min 08/19 21:05 :00 Interpretive Data: The eGFR was estimated using the IDDC-traceabl e MDRD Study equation. National Kidney Foundation: K/DOQI clinical practice guidelines for chronic kidney disease: Evaluation, classificatio n and stratificatio n. Am J Kidney Dis 2002; 39(Suppl 1):S1. [facility] HEMATOLOGY PROFILES WBC 8.63 x10(9)/L 4.80 - 10.80 08/19 21:05 :00 [facility] HEMATOLOGY PROFILES RBC 4.21 x10(12)/L 4.20 - 5.00 08/19 21:05 :00 [facility] HEMATOLOGY PROFILES HGB 12.1 g/dL 12.0 - 16.0 08/19 21:05 :00 [facility] HEMATOLOGY PROFILES HCT 37.4 % 34.5 - 47.0 08/19 21:05 :00 [facility] HEMATOLOGY PROFILES MCV 88.8 fL 81.0 - 96.5 08/19 21:05 :00 [facility] HEMATOLOGY PROFILES MCH 28.7 pg 28.0 - 33.0 08/19 21:05 :00 [facility] HEMATOLOGY PROFILES MCHC 32.4 g/dL 30.4 - 36.7 08/19 21:05 :00 [facility] HEMATOLOGY PROFILES RDW CV 14.4 % 11.5 - 14.5 08/19 21:05 :00 [facility] HEMATOLOGY PROFILES PLT 226 x10(9)/L 135 - 400 08/19 21:05 :00 [facility] HEMATOLOGY PROFILES MPV 8.9 fL 9.0 - 12.0 08/19 21:05 :00 [facility] HEMATOLOGY PROFILES % Neutrophils 79.6 % 08/19 21:05 :00 [facility] HEMATOLOGY PROFILES Absolute Granulocytes 6.87 x10(9)/L 1.40 - 6.50 08/19 21:05 :00 [facility] HEMATOLOGY PROFILES % Immature Granulocytes 0.5 % 08/19 21:05 :00 [facility] HEMATOLOGY PROFILES Abs Immature Granulocytes 0.04 x10(9)/L 0.00 - 0.03 08/19 21:05 :00 [facility] HEMATOLOGY PROFILES % Lymphocytes 11.6 % 08/19 21:05 :00 [facility] HEMATOLOGY PROFILES Abs Lymphocytes 1.00 x10(9)/L 1.20 - 3.40 08/19 21:05 :00 [facility] HEMATOLOGY PROFILES % Monocytes 7.3 % 08/19 21:05 :00 [facility] HEMATOLOGY PROFILES Abs Monocytes 0.63 x10(9)/L 0.00 - 1.00 08/19 21:05 :00 [facility] HEMATOLOGY PROFILES % Eosinophils 0.8 % 08/19 21:05 :00 [facility] HEMATOLOGY PROFILES Abs Eosinophils 0.07 x10(9)/L 0.00 - 0.30 08/19 21:05 :00 [facility] HEMATOLOGY PROFILES % Basophils 0.2 % 08/19 21:05 :00 [facility] HEMATOLOGY PROFILES Abs Basophils 0.02 x10(9)/L 0.00 - 0.10 08/19 21:05 :00 [facility] Consultation Notes Results Value Date Source LEGAL EDITOR Oncology Clinic Note Chief Compla int R kidney clogged and infected- May 10, PET and CT had a mass below R kidney Diagnoses Stage IIIC1 SCC of the cervix, recurrent Current Treatment Surveillance Previous Treatment Per initial consult: Ms. 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 Rodriguez for newly diagnosed moderately-differentiated squamous cell carcinoma of the cervix. She presented for evaluation for irregular bleeding described as spotting between cycles for 4 months. She also endorses pelvic pressure, odorous vaginal discharge, and constipation. At the time of presentation, she underwent biopsy on 08/01 that returned showing moderately-differentiated squamous cell carcinoma. On 08/02/19, she had a CT AP showing a 5.9 x 5.6 x 4.3 cm mass in the lower uterine segment/cervix; mildly enlarged bilateral iliac chain nodes worrisome for metastatic disease; and a 4.5 cm left ovarian cyst - 08/01/19: Cervical bx demonstrating moderately-differentiated SCC of the cervix - 10/17/19: Completion of external pelvic beam radiation and vaginal brachytherapy at the [facility]. Her last treatment was October 17, 2019 -11/[address]: interval improvement of cervical mass and left external iliac lymph node. right external iliac node and pelvic side wall nodes resolved. 05/13/2020: PET CT demonstrates interval development of posterior pelvic mass and increasing external iliac chain avidity concerning for new disease -05/20/2020: pelvic mass biopsy with SCC, consistent with recurrence; pt was recommended to initiate chemotherapy at this time, but not desire to proceed at that time -07/07/2020: Initiated Keytruda for recurrent SCC at [facility] -03/09/2021: PET CT: decreased size of right pelvic mass and left external iliac chain nodes -11/11/2021: Keytruda resumed after 2 month break over holidays -02/15/2022: CT CAP with no evidence of disease and stable 4.5cm left ovarian cyst -08/06/2022: CT CAP stopped Keytruda, surveillance - 11/15/2022: NM PET no evidence of disease recurrence - 02/10/2023:NM PET no evidence of disease recurrence - 04/26/2025: NM PET no evidence of disease recurrence History of Present Illness Jonelle Banda is a 53 year old female in clinic today for surveillance of 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 She has had some developments since last visit. She has needed to go more often for a nephrostomy tube (ureter stricture) replacement, it used to be every 3 mo, now it could be up to every 2 mo. She was at the ED 04/11/25 for a tube replacement and UTI. They placed a larger bore this time. She also had a CT scan done it [facility] which showed a suspicious subrenal mass, which was further pursued with a PET at [facility] a few weeks ago. The physician who viewed the PET told her nothing looks hot but recommends for someone to compile her scans. She has continued monitoring for IIIC SCC of the cervix and she has not noticed any developments. She has sometimes has bleeding with the vaginal dilator. She wanted to know what can she do in conjunction with the dilator to retain her vaginal canal depth. She feels like the left and right moy have thickened and become tighter. Review of Systems negative except as noted in HPI Physical Exam Vitals and Measurements T: 37.1 C HR: 65 RR: 16 BP: 111/74 SpO2: 99% WT: 72.8 kg GENERAL: Well-appearing female in no acute distress. HEENT: Normocephalic. Normal hearing. HEART: Regular rate, normal peripheral perfusion. LUNGS: Nonlabored breathing, symmetrical expansion. ABDOMEN: Soft, nontender, nondistended. No masses or organomegaly appreciated. GYNECOLOGIC: Normal appearing external genitalia for age and sex. radiation changes and agglutination. 6cm of vaginal length. EXTREMITIES: No edema in lower extremities. SKIN: No pallor or rash noted. NEUROLOGIC: Alert. No focal neurological deficits. PSYCHIATRIC: Cooperative. Appropriate mood and affect. Clinic Procedure Assessment/Plan 53 yo with Stage IIIC1 Squamous Cell carcinoma of the cervix here for yearly surveillance Moderately-differentiated SCC of the cervix, Stage IIIC1, recurrent -see cancer hx above - pt s/p Keytruda, which she started in June 2020, stopped July 2022 - CT CAP 02/15/22 demonstrates no evidence of disease. Last several NM PET (most recent 02/10/23 also negative for recurrence) in our system - She reports she gets scans every 6 months down at the [place] and all have been negative for disease reoccurrence (last was in April 2025) - BRANT on exam today - we will discontinue pap smears at this time per patient preference - Continue surveillance. RTC 1 yr. - we will refer her to pelvic floor physical therapy at the [facility]. Vaginal bleeding, resolved -previously discussed vaginal spotting most likely 2/2 radiation changes. BRANT at time of last visit. -Previously discussed resuming use of vaginal dilators to help lengthen vagina as pt voiced desire for future intercourse and this may help reduce discomfort. Obstructive nephropathy - pt is s/p nephrostomy tube placement - recent tube exchange April 2025 (getting q3m exchanges) - 04/10/2025 CT abdomen: The ureter is dilated to the level of the urinary bladder with subtle masslike density in the region of the right ureterovesical junction suspicious for neoplasm - appointment scheduled with urology 07/10/2025 to discuss management - MRI pelvis ordered Patient was seen and discussed with attending physician, Dr. Jones Gynecologic Oncology Attending I have seen, interviewed and examined this patient with the resident. I have reviewed all of the labs, imaging studies, and other data. I agree with the above history, physical examination as stated, and the assessment and plan. Jonelle presents for follow up of her recurrent cervical cancer. She has no evidence of disease on exam or by symptoms. We will see her back in 12 months for continued follow up. Problem List/Past Medical History Ongoing Abnormal EKG Abnormal uterine bleeding Annual physical exam CKD (chronic kidney disease) stage 3, GFR 30-59 ml/min Colon cancer screening Depression with anxiety Fatigue Hypertension Immunotherapy Left shoulder pain Major depressive disorder, recurrent, mild Malignant tumor of cervix Muscle weakness Nephrostomy status Plantar wart of right foot PMDD (premenstrual dysphoric disorder) Polyarthralgia Recurrent cervical cancer Right flank pain Historical Abdominal pain Anemia Constipation in female Melanoma Precordial chest pain Urinary tract infectious disease Vaginal bleeding. Procedure/Surgical History Colonoscopy, flexible; diagnostic, including collection of specimen(s) by brushing or washing, when performed (separate procedure) Service Date: 11/14/2021 BTL eye Nephrostomy tube Medications acetaminophen-HYDROcodone(acetaminophen -hydrocodone 325 mg-5 mg oral tablet), 1 Tablet(s), Oral, q6h, PRN DULoxetine(Cymbalta 30 mg oral delayed release capsule), 30 mg= 1 capsule(s), Oral, Daily lisinopril(lisinopril 5 mg oral tablet), 5 mg= 1 Tablet(s), Oral, Daily multivitamin with minerals(PreserVision AREDS oral capsule), 1 capsule(s), Oral, qAM multivitamin with minerals(Adult Multivitamin Gummies) venlafaxine(venlafaxine 225 mg oral tablet, extended release), 1 Tablet(s), Oral, Daily Allergies Rocephin Hives cefTRIAXone Eruption Social History Smoking Status Never smoker Alcohol Frequency:1-2 times per year Has alcohol use interfered with work or home life:No Do you ever drink more than intended:No Has anyone been hurt or at risk by your drinking:No Ready to change:No Concerns about alcohol use in household:No Home/Environment Lives with:Children Living situation:Home/Independent Alcohol abuse in household:No Substance abuse in household:No Smoker in household:No Injuries/Abuse/Neglect in household:No Substance Abuse - Denies Substance Abuse Tobacco Smoking HistoryNever smoker Smokeless TobaccoNo E-Cigarette UseNo Concerns about tobacco use in household:No Does the Pt. visit or live with a smokerNo Is Patient Exposed to E-Cigarette VaporNo Total pack years:0 Previous treatment:None Tobacco/Nicotine CounselingContinue tobacco/nicotine free lifestyle Family History COPD - Chronic obstructive pulmonary disease: Mother. Health Status Family Member(s) Immunizations Vaccine Date Status hepatitis A adult vaccine 08/06/2010 Recorded hepatitis A adult vaccine 04/29/2009 Recorded Health Maintenance Lab Results Diagnostic Results (04/10/2025 18:[address] Abdomen and Pelvis w/ Contrast) IMPRESSION: 1. Right-sided percutaneous nephrostomy tube in place with severe right-sided hydroureteronephrosis. The ureter is dilated to the level of the urinary bladder with subtle masslike density in the region of the right ureterovesical junction suspicious for neoplasm. This is suboptimally evaluated due to lack of contrast within the bladder and right ureter. Delayed imaging or cystoscopy should be considered. 2. Other chronic findings described above. [1] Visit Information Attending Physician: Paramjit Jones MD Primary Care Physician: Anahi Hawkins MD Visit Date: 05/16/2025 [1] CT Abdomen and Pelvis w/ Contrast; [facility] [place] 04/10/2025 18:07 CDT 05/16/2025 Emergency Services Note History Of Prese nt Illness Received patient at handoff pending ED observation evaluation for admission for IR placement in the morning. I agree with previous provider's review of systems and physical exam. Review of Systems Reevaluation/Repeat Exam Vitals and Measurements T: 36.9 C HR: 71 RR: 14 BP: 144/67 SpO2: 94% WT: 73.5 kg Lab Results HEMATOLOGY PROFILES LATEST RESULTS HISTORICAL RESULTS WBC 04/10/25 17:02 13.66 High 08/19/24 8.63 RBC 04/10/25 17:02 4.36 08/19/24 4.21 HGB 04/10/25 17:02 12.6 08/19/24 12.1 HCT 04/10/25 17:02 38.9 08/19/24 37.4 MCV 04/10/25 17:02 89.2 08/19/24 88.8 MCH 04/10/25 17:02 28.9 08/19/24 28.7 MCHC 04/10/25 17:02 32.4 08/19/24 32.4 RDW CV 04/10/25 17:02 13.9 08/19/24 14.4 PLT 04/10/25 17:02 248 08/19/24 226 MPV 04/10/25 17:02 8.9 Low 08/19/24 8.9 Low % Neutrophils 04/10/25 17:02 85.1 08/19/24 79.6 Absolute Granulocytes 04/10/25 17:02 11.62 High 08/19/24 6.87 High % Immature Granulocytes 04/10/25 17:02 0.4 08/19/24 0.5 Abs Immature Granulocytes 04/10/25 17:02 0.06 High 08/19/24 0.04 High % Lymphocytes 04/10/25 17:02 7.1 08/19/24 11.6 Abs Lymphocytes 04/10/25 17:02 0.97 Low 08/19/24 1.00 Low % Monocytes 04/10/25 17:02 7.1 08/19/24 7.3 Abs Monocytes 04/10/25 17:02 0.97 08/19/24 0.63 % Eosinophils 04/10/25 17:02 0.1 08/19/24 0.8 Abs Eosinophils 04/10/25 17:02 0.01 08/19/24 0.07 % Basophils 04/10/25 17:02 0.2 08/19/24 0.2 Abs Basophils 04/10/25 17:02 0.03 08/19/24 0.02 GENERAL CHEMISTRY LATEST RESULTS HISTORICAL RESULTS Sodium 04/10/25 17:02 141 08/19/24 139 Potassium 04/10/25 17:02 4.3 08/19/24 3.9 Chloride 04/10/25 17:02 108.0 08/19/24 108 CO2 04/10/25 17:02 26.0 08/19/24 27 Anion gap 04/10/25 17:02 7 08/19/24 4 Low Glucose Lvl 04/10/25 17:02 102 08/19/24 120 BUN 04/10/25 17:02 19 08/19/24 14 Creatinine, standardized 04/10/25 17:02 1.38 High 08/19/24 1.40 High Estimated GFR for Adults 04/10/25 17:02 45 Low 06/20/24 43 Low Calcium 04/10/25 17:02 9.1 08/19/24 8.6 URINALYSIS LATEST RESULTS HISTORICAL RESULTS COLOR 04/10/25 17:02 Light-Yellow 08/19/24 Colorless CLARITY 04/10/25 17:02 Turbid Abnormal 08/19/24 Clear SPECIFIC GRAVITY 04/10/25 17:02 1.007 08/19/24 1.005 UA PH 04/10/25 17:02 5.5 08/19/24 7.0 UA GLUCOSE 04/10/25 17:02 Negative 08/19/24 Negative UA KETONES 04/10/25 17:02 Negative 08/19/24 Negative BILIRUBIN 04/10/25 17:02 Negative 08/19/24 Negative UA UROBILINOGEN 04/10/25 17:02 <=1 08/19/24 <=1 UA BLOOD 04/10/25 17:02 Trace 08/19/24 Small Abnormal UA LEUKOCYTES 04/10/25 17:02 Large Abnormal 08/19/24 Moderate Abnormal UA NITRITE 04/10/25 17:02 Negative 08/19/24 Negative UA PROTEIN 04/10/25 17:02 Negative 08/19/24 30 Abnormal WBC 04/10/25 17:02 >100 Abnormal 08/19/24 31-50 Abnormal RBC 04/10/25 17:02 0-5 08/19/24 0-5 UA Epithelial Cells 04/10/25 17:02 0-10 08/19/24 0-10 UA Bacteria 04/10/25 17:02 Few 08/19/24 Rare UA Mucous 04/10/25 17:02 Present Abnormal 08/19/24 Present Abnormal Diagnostic Results CT Abdomen and Pelvis w/ Contrast 04/10/2025 19:34 CDT (04/10/2025 18:[address] Abdomen and Pelvis w/ Contrast) IMPRESSION: 1. Right-sided percutaneous nephrostomy tube in place with severe right-sided hydroureteronephrosis. The ureter is dilated to the level of the urinary bladder with subtle masslike density in the region of the right ureterovesical junction suspicious for neoplasm. This is suboptimally evaluated due to lack of contrast within the bladder and right ureter. Delayed imaging or cystoscopy should be considered. 2. Other chronic findings described above. [1] Medical Decision Making Received patient at handoff pending ED observation evaluation for admission for IR placement in the morning. Refer to previous provider's review of systems, physical exam, and early medical decision making. ED observation requesting final read of CT imaging prior to excepting admission. CT imaging showed right-sided nephrostomy tube in place with severe right-sided hydroureteronephrosis in addition to subtle, masslike density at the region of the right UVJ. This masslike density is new and patient was discussed with urology at (where patient had previously seen urology and undergone previous nephrostomy tube exchanges) who advised IR mediated tube exchange appropriate here at [facility], as long as we have the capability in the morning. Spoke with radiology who advised they would be able to do nephrostomy tube exchange in the morning and patient admitted to ED observation in stable condition with no acute decompensation throughout her stay. Attending on shift Dr. Brothers Assessment/Plan 1. Other mechanical complication of other urinary catheter, initial encounter 2. Malfunction of nephrostomy tube 3. Complicated urinary tract infection Patient Education Follow Up Medication Administration Given sodium chloride 0.9% - NS, 1000 mL, IV acetaminophen 500 mg oral tablet, 1000 mg, Oral. For: Malfunction of nephrostomy tube cefepime, IVPB. For: Other mechanical complication of other urinary catheter, initial encounter, Malfunction of nephrostomy tube, Complicated Urinary Tract Infection cyclobenzaprine, 10 mg, Oral. For: Other mechanical complication of other urinary catheter, initial encounter, Malfunction of nephrostomy tube fentaNYL, 25 mcg, IV Push. For: Malfunction of nephrostomy tube HYDROmorphone Inj, 1 mg, IV Push. For: Other mechanical complication of other urinary catheter, initial encounter, Malfunction of nephrostomy tube, Complicated urinary tract infection iodixanol, 75 mL, IV Contrast ketorolac, 15 mg, IV Push. For: Other mechanical complication of other urinary catheter, initial encounter, Malfunction of nephrostomy tube, Complicated urinary tract infection morphine INJ, 4 mg, IV Push. For: Other mechanical complication of other urinary catheter, initial encounter, Malfunction of nephrostomy tube Medication Reconciliation Unchanged acetaminophen-HYDROcodone (acetaminophen-hydrocodone 325 mg-5 mg oral tablet)1 tab(s) Oral Every 6 hours as needed Pain, Moderate. lisinopril (lisinopril 5 mg oral tablet)1 tab(s) Oral Daily. Refills: 0. multivitamin with minerals (Adult Multivitamin Gummies) venlafaxine (venlafaxine 225 mg oral tablet, extended release)1 tab(s) Oral Daily. Refills: 1. [1] CT Abdomen and Pelvis w/ Contrast; [facility] 04/10/2025 18:07 CDT 04/10/2025 Emergency Services Note Basic Informatio n Chief Complaint pt has a rt nephrostomy tube that has not been draining a few days.diff to flush.rt flank pain History of Present Illness This is a 54-year-old female with history of cervical mass, squamous cell carcinoma of the cervix with right nephrostomy tube exchange 02/15/2025. Patient states that she gets exchanges approximately every 3 months, sometimes has sediment buildup and occlusions that require more frequent changes. States that she woke up this morning and noticed decreased urine output in the bag, still makes urine and urinates with her urethra as well. Attempted to flush send it was excruciatingly painful, took a long time in order to get the full volume of the syringe flushed with no change in the urine output. She does not flush daily due to infectious concerns. States that this is similar in the past when she has had obstructions. Denies any fevers but does endorse some right flank pain and right pressure. Denies any symptoms typical for her urinary Labs indicate a leukocytosis of 13, renal function is at patient's baseline, no significant electrolyte abnormalities, urinalysis notable for large leukocytes and white blood cells greater than 100 without any evidence of contamination. Does appear similar to prior urine cultures which have grown Pseudomonas in the past Review of Systems Review of systems negative except for stated above in HPI. Physical Exam Vitals and Measurements Initial: T: 36.9 C HR: 66 BP: 160/88 RR: 20 SpO2: 99% WT: 73.5 kg General: Alert, no acute distress. Skin: no rash Cardiovascular: Regular rate and rhythm, normal perfusion Respiratory: Lungs are clear, respirations non-labored Musculoskeletal: Normal ROM, no tenderness. Renal:Right percutaneous nephrostomy tube in place, insertion site dry, intact, no erythema, induration, discharge. No urine output in bag, some light yellow sediment noted throughout the tube Gastrointestinal: Soft, nontender, nondistended. Neurological: Alert, no focal deficits on exam Psychiatric: Cooperative. Medical Decision Making I have independently reviewed nursing triage information. I have independently reviewed prior medical records in the EMR. I have independently reviewed and interpreted all laboratory, radiology, EKG and diagnostic studies as documented in the MDM. Additional history obtained from: Acute problems addressed: Complications 2/2 indwelling device Chronic Problems noted/addressed: Chronic kidney disease, history of cervical cancer Differentials: Tube occlusion, malposition, dislodgment, fracture/breakage Independent interpretation by this provider: laboratory, radiology and diagnostic studies Intensive Monitoring: No Other sources: n/a Notable discussions: n/a Notable Considerations: I have given consideration for observation admission I discussed the above findings with the patient. The entire plan of care has been decided through shared decision making with directed input from the patient. Patient verbalized understanding of all findings and agrees to plan of care. All questions from patient/guardian have been answered to their satisfaction. Scripts: Prescription(s) were provided to assist with symptom relief. Is a 54-year-old female with history of indwelling right percutaneous nephrostomy tube secondary to malignancy and ureteral obstruction presenting to the emergency department for decreased urine output, increased right flank pain and pressure likely secondary to obstruction due to sediment buildup. Patient is 1 month away from her scheduled 3-month exchange. Vital signs notable for hypertension, likely secondary to acute pain as well as chronic hypertension. Analgesia was given and tube was attempted to be flushed at bedside without success. Only 5cc flushed and it was exquisitely painful for patient. Initial workup to include CBC, CMP, UA to evaluate renal function and for infection. Labs indicate a leukocytosis of 13, renal function is at patient's baseline, no significant electrolyte abnormalities, urinalysis notable for large leukocytes and white blood cells greater than 100 without any evidence of contamination. Does appear similar to prior urine cultures which have grown Pseudomonas in the past. Although patient does not have her typical UTI symptoms of bladder spasms, pelvic pressure in the setting of likely nephrostomy tube exchange, right flank pain will treat as urinary tract infection with cefepime Independent interpretation of the CT demonstrates right percutaneous nephrostomy with appropriate location, associated ureteronephrosis that appears similar to prior 2022. At this time plan to admit patient to ED observation for pain control pending IR plan for nephrostomy exchange. Transfer of care to [facility] pending final CT read This visit was shared with Dr. De Leon Assessment/Plan 1. Other mechanical complication of other urinary catheter, initial encounter 2. Malfunction of nephrostomy tube 3. Complicated urinary tract infection Orders: Culture Urine, Clean Catch, Collected Y/N, Stat, Stat, 04/10/25 17:31:00 CDT, Nurse Collect, [facility] CP Login, Print Label Y/N, [email or web address], Malfunction of nephrostomy tube, Hold Until Collected, First Available Patient Education Follow Up Medication Reconciliation Unchanged acetaminophen-HYDROcodone (acetaminophen-hydrocodone 325 mg-5 mg oral tablet)1 tab(s) Oral Every 6 hours as needed Pain, Moderate. lisinopril (lisinopril 5 mg oral tablet)1 tab(s) Oral Daily. Refills: 0. multivitamin with minerals (Adult Multivitamin Gummies) venlafaxine (venlafaxine 225 mg oral tablet, extended release)1 tab(s) Oral Daily. Refills: 1. ED Forms Problem List/Past Medical History Ongoing Abnormal EKG Abnormal uterine bleeding Annual physical exam CKD (chronic kidney disease) stage 3, GFR 30-59 ml/min Colon cancer screening Depression with anxiety Fatigue Hypertension Immunotherapy Left shoulder pain Major depressive disorder, recurrent, mild Malignant tumor of cervix Muscle weakness Nephrostomy status Plantar wart of right foot PMDD (premenstrual dysphoric disorder) Polyarthralgia Recurrent cervical cancer Right flank pain Historical Abdominal pain Anemia Constipation in female Melanoma Precordial chest pain Urinary tract infectious disease Vaginal bleeding. Procedure/Surgical History Medication Administration Given acetaminophen 500 mg oral tablet, 1000 mg, Oral. For: Malfunction of nephrostomy tube cefepime, IVPB. For: Other mechanical complication of other urinary catheter, initial encounter, Malfunction of nephrostomy tube, Complicated Urinary Tract Infection cyclobenzaprine, 10 mg, Oral. For: Other mechanical complication of other urinary catheter, initial encounter, Malfunction of nephrostomy tube fentaNYL, 25 mcg, IV Push. For: Malfunction of nephrostomy tube HYDROmorphone Inj, 1 mg, IV Push. For: Other mechanical complication of other urinary catheter, initial encounter, Malfunction of nephrostomy tube, Complicated urinary tract infection iodixanol, 75 mL, IV Contrast morphine INJ, 4 mg, IV Push. For: Other mechanical complication of other urinary catheter, initial encounter, Malfunction of nephrostomy tube Allergies Rocephin Hives cefTRIAXone Eruption Social History Smoking Status Never smoker Alcohol Frequency:1-2 times per year Has alcohol use interfered with work or home life:No Do you ever drink more than intended:No Has anyone been hurt or at risk by your drinking:No Ready to change:No Concerns about alcohol use in household:No Home/Environment Lives with:Children Living situation:Home/Independent Alcohol abuse in household:No Substance abuse in household:No Smoker in household:No Injuries/Abuse/Neglect in household:No Substance Abuse - Denies Substance Abuse Tobacco Smoking HistoryNever smoker Smokeless TobaccoNo E-Cigarette UseNo Concerns about tobacco use in household:No Does the Pt. visit or live with a smokerNo Is Patient Exposed to E-Cigarette VaporNo Total pack years:0 Previous treatment:None Tobacco/Nicotine CounselingContinue tobacco/nicotine free lifestyle Family History COPD - Chronic obstructive pulmonary disease: Mother. Health Status Family Member(s) Lab Results HEMATOLOGY PROFILES LATEST RESULTS HISTORICAL RESULTS WBC 04/10/25 17:02 13.66 High 08/19/24 8.63 RBC 04/10/25 17:02 4.36 08/19/24 4.21 HGB 04/10/25 17:02 12.6 08/19/24 12.1 HCT 04/10/25 17:02 38.9 08/19/24 37.4 MCV 04/10/25 17:02 89.2 08/19/24 88.8 MCH 04/10/25 17:02 28.9 08/19/24 28.7 MCHC 04/10/25 17:02 32.4 08/19/24 32.4 RDW CV 04/10/25 17:02 13.9 08/19/24 14.4 PLT 04/10/25 17:02 248 08/19/24 226 MPV 04/10/25 17:02 8.9 Low 08/19/24 8.9 Low % Neutrophils 04/10/25 17:02 85.1 08/19/24 79.6 Absolute Granulocytes 04/10/25 17:02 11.62 High 08/19/24 6.87 High % Immature Granulocytes 04/10/25 17:02 0.4 08/19/24 0.5 Abs Immature Granulocytes 04/10/25 17:02 0.06 High 08/19/24 0.04 High % Lymphocytes 04/10/25 17:02 7.1 08/19/24 11.6 Abs Lymphocytes 04/10/25 17:02 0.97 Low 08/19/24 1.00 Low % Monocytes 04/10/25 17:02 7.1 08/19/24 7.3 Abs Monocytes 04/10/25 17:02 0.97 08/19/24 0.63 % Eosinophils 04/10/25 17:02 0.1 08/19/24 0.8 Abs Eosinophils 04/10/25 17:02 0.01 08/19/24 0.07 % Basophils 04/10/25 17:02 0.2 08/19/24 0.2 Abs Basophils 04/10/25 17:02 0.03 08/19/24 0.02 GENERAL CHEMISTRY LATEST RESULTS HISTORICAL RESULTS Sodium 04/10/25 17:02 141 08/19/24 139 Potassium 04/10/25 17:02 4.3 08/19/24 3.9 Chloride 04/10/25 17:02 108.0 08/19/24 108 CO2 04/10/25 17:02 26.0 08/19/24 27 Anion gap 04/10/25 17:02 7 08/19/24 4 Low Glucose Lvl 04/10/25 17:02 102 08/19/24 120 BUN 04/10/25 17:02 19 08/19/24 14 Creatinine, standardized 04/10/25 17:02 1.38 High 08/19/24 1.40 High Estimated GFR for Adults 04/10/25 17:02 45 Low 06/20/24 43 Low Calcium 04/10/25 17:02 9.1 08/19/24 8.6 URINALYSIS LATEST RESULTS HISTORICAL RESULTS COLOR 04/10/25 17:02 Light-Yellow 08/19/24 Colorless CLARITY 04/10/25 17:02 Turbid Abnormal 08/19/24 Clear SPECIFIC GRAVITY 04/10/25 17:02 1.007 08/19/24 1.005 UA PH 04/10/25 17:02 5.5 08/19/24 7.0 UA GLUCOSE 04/10/25 17:02 Negative 08/19/24 Negative UA KETONES 04/10/25 17:02 Negative 08/19/24 Negative BILIRUBIN 04/10/25 17:02 Negative 08/19/24 Negative UA UROBILINOGEN 04/10/25 17:02 <=1 08/19/24 <=1 UA BLOOD 04/10/25 17:02 Trace 08/19/24 Small Abnormal UA LEUKOCYTES 04/10/25 17:02 Large Abnormal 08/19/24 Moderate Abnormal UA NITRITE 04/10/25 17:02 Negative 08/19/24 Negative UA PROTEIN 04/10/25 17:02 Negative 08/19/24 30 Abnormal WBC 04/10/25 17:02 >100 Abnormal 08/19/24 31-50 Abnormal RBC 04/10/25 17:02 0-5 08/19/24 0-5 UA Epithelial Cells 04/10/25 17:02 0-10 08/19/24 0-10 UA Bacteria 04/10/25 17:02 Few 08/19/24 Rare UA Mucous 04/10/25 17:02 Present Abnormal 08/19/24 Present Abnormal Diagnostic Results CT Abdomen and Pelvis w/ Contrast 04/10/2025 19:34 CDT ECG I did not evaluate this patient or participate in his/her care. I was available at all times during the ED course. I have reviewed the [facility]'s documentation. Claire De Leon MD Attending Physician 04/10/2025 Op/Procedure Note Brief Operative Note Procedure: 1. fluoro guided right neph tube exchange (8F) 2. Pre-operative Diagnosis: leaking tube Diagnoses This Visit No Visit Diagnoses Documented Post-operative Diagnosis: Same Operators: Attending Physician: Dr. Burns Assisting: Dr. Álvarez Findings: Uncomplicated procedure. see final dictation for details. Sedation: None Medications: _ Estimated blood loss: < 15 mL Complications: None Specimens: None Drains: None Disposition: Stable to recovery Please contact the Interventional Nail Cutter on-call with questions or concerns. 02/15/2025 Op/Procedure Note Procedure Attending Physician: Kristen Duncan MD Service: Interventional Radiology Procedure Performed: 1. Image guided R nephrostomy 8Fr tube exchange 2. _ 3. _ 4. _ 5. _ Conscious sedation for a total of 0 minutes. Sedatives used: [_] Versed [_] Fentanyl [_] Benadryl [_] Dilauded [x] Lidocaine with/without Epinephrine Procedure Performed By: Attending Physician: Kristen Duncan MD Assisting: Description of Procedure Pre Op Diagnosis: Abnormal EKG Abnormal uterine bleeding Annual physical exam CKD (chronic kidney disease) stage 3, GFR 30-59 ml/min Colon cancer screening Depression with anxiety Fatigue Hypertension Immunotherapy Left shoulder pain Major depressive disorder, recurrent, mild Malignant tumor of cervix Muscle weakness Nephrostomy status PMDD (premenstrual dysphoric disorder) Plantar wart of right foot Polyarthralgia Recurrent cervical cancer Right flank pain _ Post Op Diagnosis: Abnormal EKG Abnormal uterine bleeding Annual physical exam CKD (chronic kidney disease) stage 3, GFR 30-59 ml/min Colon cancer screening Depression with anxiety Fatigue Hypertension Immunotherapy Left shoulder pain Major depressive disorder, recurrent, mild Malignant tumor of cervix Muscle weakness Nephrostomy status PMDD (premenstrual dysphoric disorder) Plantar wart of right foot Polyarthralgia Recurrent cervical cancer Right flank pain_ Location of Procedure: Radiology Informed Consent Obtained: Yes, Risk/Benefits discussed Monitoring During Procedure: [x] Blood Pressure Monitoring [x] Cardiac Monitoring [x] Continuous Pulse Oximetry [x] Heart Rate [x] Respiratory Rate Prep and Technique: Usual Standard Manner. Core Maker Helper Prep: [x] Cap, [x] Eye protection, [x] Mask, [x] Sterile gloves, [x] Sterile gowns. Patient Prep: [x] Prepped in sterile manner, [x] Prep solution +, [x] Draped in sterile manner. Anesthesia: IV Sedation: [_] Versed = _mg [_] Fentanyl = _mcg Local: 1% Lidocaine without Epinephrine Position of Patient: Supine Procedure Findings: Immediate Post Op Note: Uncomplicated R nephrostomy tube exchange See radiology report when available for additional details. Complications: none. Condition: Stable Procedure Tolerated: Fair Estimated Blood Lost: Minimal Complications: _ Drains: _ Specimen: _ Attending Physician Present For: Entire Procedure 12/24/2024 Op/Procedure Note Procedure Attending Physician: Kristen Duncan MD Service: Interventional Radiology Procedure Performed: 1. Fluoro guided right nephrostomy tube replacement 2. _ 3. _ 4. _ 5. _ Conscious sedation for a total of _ minutes. Sedatives used: [_] Versed [_] Fentanyl [_] Benadryl [_] Dilauded [_] Lidocaine with/without Epinephrine Procedure Performed By: Attending Physician: Kristen Duncan MD Assisting: Description of Procedure Pre Op Diagnosis: Abnormal EKG Abnormal uterine bleeding Annual physical exam CKD (chronic kidney disease) stage 3, GFR 30-59 ml/min Colon cancer screening Depression with anxiety Fatigue Hypertension Immunotherapy Left shoulder pain Major depressive disorder, recurrent, mild Malignant tumor of cervix Muscle weakness Nephrostomy status PMDD (premenstrual dysphoric disorder) Plantar wart of right foot Polyarthralgia Recurrent cervical cancer Right flank pain Post Op Diagnosis: Abnormal EKG Abnormal uterine bleeding Annual physical exam CKD (chronic kidney disease) stage 3, GFR 30-59 ml/min Colon cancer screening Depression with anxiety Fatigue Hypertension Immunotherapy Left shoulder pain Major depressive disorder, recurrent, mild Malignant tumor of cervix Muscle weakness Nephrostomy status PMDD (premenstrual dysphoric disorder) Plantar wart of right foot Polyarthralgia Recurrent cervical cancer Right flank pain Location of Procedure: Radiology Informed Consent Obtained: Yes, Risk/Benefits discussed Monitoring During Procedure: [x] Blood Pressure Monitoring [x] Cardiac Monitoring [x] Continuous Pulse Oximetry [x] Heart Rate [x] Respiratory Rate Prep and Technique: Usual Standard Manner. Core Maker Helper Prep: [x] Cap, [x] Eye protection, [x] Mask, [x] Sterile gloves, [x] Sterile gowns. Patient Prep: [x] Prepped in sterile manner, [_] Prep solution +, [x] Draped in sterile manner. Anesthesia: IV Sedation: [_] Versed = _mg [_] Fentanyl = _mcg Local: 1% Lidocaine without Epinephrine Position of Patient: Prone Procedure Findings: Immediate Post Op Note: Uncomplicated neph tube exchange See radiology report when available for additional details. Complications: none. Condition: Stable Procedure Tolerated: Fair Estimated Blood Lost: Minimal Complications: None. Drains: None. Specimen: None. Attending Physician Present For: Entire Procedure 12/24/2024 Op/Procedure Note Procedure Attending Physician: Monica Pizarro MD Service: Interventional Radiology Procedure Performed: 1. Fluoro guided R PCN exchange and nephrostogram 2. _ 3. _ 4. _ 5. _ Conscious sedation for a total of _ minutes. Sedatives used: [_] Versed [_] Fentanyl [_] Benadryl [_] Dilauded [x] Lidocaine with/without Epinephrine Procedure Performed By: Attending Physician: Monica Pizarro MD Assisting: Description of Procedure Pre Op Diagnosis: Abnormal EKG Abnormal uterine bleeding Annual physical exam CKD (chronic kidney disease) stage 3, GFR 30-59 ml/min Colon cancer screening Depression with anxiety Fatigue Hypertension Immunotherapy Left shoulder pain Major depressive disorder, recurrent, mild Malignant tumor of cervix Muscle weakness Nephrostomy status PMDD (premenstrual dysphoric disorder) Plantar wart of right foot Polyarthralgia Recurrent cervical cancer Right flank pain Post Op Diagnosis: Abnormal EKG Abnormal uterine bleeding Annual physical exam CKD (chronic kidney disease) stage 3, GFR 30-59 ml/min Colon cancer screening Depression with anxiety Fatigue Hypertension Immunotherapy Left shoulder pain Major depressive disorder, recurrent, mild Malignant tumor of cervix Muscle weakness Nephrostomy status PMDD (premenstrual dysphoric disorder) Plantar wart of right foot Polyarthralgia Recurrent cervical cancer Right flank pain Location of Procedure: Radiology Informed Consent Obtained: Yes, Risk/Benefits discussed Monitoring During Procedure: [x] Blood Pressure Monitoring [x] Cardiac Monitoring [x] Continuous Pulse Oximetry [x] Heart Rate [x] Respiratory Rate Prep and Technique: Usual Standard Manner. Core Maker Helper Prep: [x] Cap, [x] Eye protection, [x] Mask, [x] Sterile gloves, [x] Sterile gowns. Patient Prep: [x] Prepped in sterile manner, [_] Prep solution +, [x] Draped in sterile manner. Anesthesia: IV Sedation: [_] Versed = _mg [_] Fentanyl = _mcg Local: 1% Lidocaine without Epinephrine Position of Patient: Prone Procedure Findings: Immediate Post Op Note: Uncomplicated tube exchange See radiology report when available for additional details. Complications: none. Condition: Stable Procedure Tolerated: Fair Estimated Blood Lost: Minimal Complications: None. Drains: None. Specimen: None. Attending Physician Present For: Entire Procedure 09/12/2024 Emergency Services Note Basic Informatio n Chief Complaint Rt kidney pain, hx of nephrostomy tube from that kidney with associated infection in past History of Present Illness 53-year-old female patient with a known history of CKD stage III, depression, hypertension, cervical cancer and polyarthralgia presents with right-sided flank pain. She has a known history of cervical cancer causing chronic right ureteral obstruction necessitating a chronic right nephrostomy tube, she reports that she has had the nephrostomy tube for about 5 years or so, she has recently started flushing it every other day. She reports that she was diagnosed with a urinary tract infection about 6 weeks ago or so, she had the nephrostomy tube changed at that time, reports that she had 1 dose of IV antibiotics and then had oral antibiotics (this occurred on 06/20/2024). She reports that she had a Mediport in the right chest that was nonfunctional removed on Tuesday, and then yesterday evening, started complaining of some right flank pain, similar to the pain that she felt when she had a urinary tract infection in mid June. She reports that the tube appears to be functioning normally. She has had no fevers or chills, she states that overall she does not feel good but denies nausea, vomiting or diarrhea, no reported blood in the nephrostomy bag. Review of Systems Complete 10 system review of systems performed, no additional pertinent positives or negatives other than that listed in the HPI. Physical Exam Vitals and Measurements T: 37.3 C HR: 86 RR: 20 BP: 122/77 SpO2: 99% WT: 71.5 kg GENERAL: Awake and in no acute distress. HEENT: Head is normocephalic and atraumatic. Pupils are equal, round and reactive, extraocular muscles are intact. Oral mucosa are moist. NECK: Trachea is midline. No meningeal signs. LUNGS: Lungs are clear to auscultation bilaterally. There is good respiratory effort. HEART: Regular rate and rhythm, no murmur. There is no gallop or rub. ABDOMEN: Soft and nontender to palpation. Bowel sounds are normal in all quadrants. There is no guarding or rebound. There are no masses. She does have a moderate amount of tenderness around the insertion site of the right nephrostomy tube. The insertion site itself appears essentially unremarkable, there is a minuscule amount of debris but no obvious purulence. She does have a purulent appearing green spot on the bandage which she states typically is not there. MUSCULOSKELETAL: Moves all extremities x4. There is no obvious deformity. SKIN: Exposed skin shows no obvious erythema. Skin is warm and dry. The surgical incision from the Mediport extraction appears to be healing well with no obvious sign of infection. NEUROLOGIC: Patient is alert and oriented x3. No focal neurologic defect is noted. Procedure Medical Decision Making Additional history obtained from: Acute problems addressed: Right flank pain Chronic Problems noted/addressed: Right nephrostomy tube Differentials: Functional pain from nephrostomy tube, UTI, pyelonephritis, dislodged nephrostomy tube Diagnostics: None Independent interpretation by this provider: None Intensive Monitoring required for: No _ _ Other sources: Notable discussions: Discussed with Dr. Pena, attending urologist, at [facility], he recommends treating with ciprofloxacin and having her follow-up at least by phone tomorrow as long as the output is not decreasing, if the nephrostomy output is decreasing that she needs to return to the emergency department for reevaluation. Scripts: Prescription(s) were provided for treatment of this condition. Summary: 53-year-old female patient with a chronic nephrostomy tube presents with increasing right flank pain over the past 24 hours, she is concerned about recurrent urinary tract infection. She really does not think that there is been a significant decrease in the amount of output from her right nephrostomy tube in the last 24 hours, overall, she does not appear toxic. Her laboratory evaluation shows an unremarkable CBC, chemistry panel is also clinically unremarkable, she has a stable creatinine at 1.4, her urinalysis shows small blood, moderate leukocytes, negative nitrites, a good catch with rare bacteria, consistent essentially with pyuria. I relayed my conversation with the urologist as far as recommending the initiation of antibiotics and outpatient follow-up, she is very comfortable with this. I think this is very reasonable as well. She was given return precautions and is otherwise stable for outpatient follow-up. Reexamination/Reevaluation Assessment/Plan 1. Flank pain 2. Pyuria Orders: ciprofloxacin, 500 mg= 1 Tablet(s), Oral, Daily Culture Urine, Clean Catch, Collected Y/N, Stat, Stat, 08/19/24 17:28:00 CDT, Nurse Collect, [facility] CP Login, Print Label Y/N, [email or web address], Hold Until Collected, First Available Insert PIV, 08/19/24 16:05:00 CDT Once, PIV Patient Education Flank Pain Follow Up With When Contact Information Nitin ZHENG, Oliver Noland, UROLOGY, Urology Within 1 to [address] [place] [id number] Additional Instructions: If you notice any significant decline in the output of the nephrostomy tube, or if you start feeling worse, have increasing pain or have any temperature greater than 100.4 °F, then return to the emergency department for reevaluation. Medication Reconciliation Unchanged acetaminophen-HYDROcodone (acetaminophen-hydrocodone 325 mg-5 mg oral tablet)1 tab(s) Oral Every 6 hours as needed Pain, Moderate. lisinopril (lisinopril 5 mg oral tablet)1 tab(s) Oral Daily. Refills: 0. multivitamin with minerals (Adult Multivitamin Gummies) venlafaxine (venlafaxine 225 mg oral tablet, extended release)1 tab(s) Oral Daily. Refills: 1. Discontinued hydrochlorothiazide-lisinopril (hydrochlorothiazide-lisinopril 12.5 mg-20 mg oral tablet)1 tab(s) Oral Daily. Refills: 1. ED Forms Problem List/Past Medical History Ongoing Abnormal EKG Abnormal uterine bleeding Annual physical exam CKD (chronic kidney disease) stage 3, GFR 30-59 ml/min Colon cancer screening Depression with anxiety Fatigue Hypertension Immunotherapy Left shoulder pain Major depressive disorder, recurrent, mild Malignant tumor of cervix Muscle weakness Nephrostomy status Plantar wart of right foot PMDD (premenstrual dysphoric disorder) Polyarthralgia Recurrent cervical cancer Right flank pain Historical Abdominal pain Anemia Constipation in female Melanoma Precordial chest pain Urinary tract infectious disease Vaginal bleeding. Procedure/Surgical History Colonoscopy, flexible; diagnostic, including collection of specimen(s) by brushing or washing, when performed (separate procedure) Service Date: 11/14/2021 BTL eye Nephrostomy tube Medication Administration Given ciprofloxacin, 500 mg, Oral. For: Urinary tract infection ketorolac, 15 mg, IV Push Allergies Rocephin Hives cefTRIAXone Eruption Social History Smoking Status Never smoker Alcohol Frequency:1-2 times per year Has alcohol use interfered with work or home life:No Do you ever drink more than intended:No Has anyone been hurt or at risk by your drinking:No Ready to change:No Concerns about alcohol use in household:No Home/Environment Lives with:Children Living situation:Home/Independent Alcohol abuse in household:No Substance abuse in household:No Smoker in household:No Injuries/Abuse/Neglect in household:No Substance Abuse - Denies Substance Abuse Tobacco Smoking HistoryNever smoker Smokeless TobaccoNo E-Cigarette UseNo Concerns about tobacco use in household:No Does the Pt. visit or live with a smokerNo Is Patient Exposed to E-Cigarette VaporNo Total pack years:0 Previous treatment:None Tobacco/Nicotine CounselingContinue tobacco/nicotine free lifestyle Family History COPD - Chronic obstructive pulmonary disease: Mother. Health Status Family Member(s) Lab Results HEMATOLOGY PROFILES LATEST RESULTS HISTORICAL RESULTS WBC 08/19/24 16:05 8.63 06/20/24 24.29 High RBC 08/19/24 16:05 4.21 06/20/24 4.24 HGB 08/19/24 16:05 12.1 06/20/24 12.0 HCT 08/19/24 16:05 37.4 06/20/24 37.9 MCV 08/19/24 16:05 88.8 06/20/24 89.4 MCH 08/19/24 16:05 28.7 06/20/24 28.3 MCHC 08/19/24 16:05 32.4 06/20/24 31.7 Low RDW CV 08/19/24 16:05 14.4 06/20/24 14.1 PLT 08/19/24 16:05 226 06/20/24 262 MPV 08/19/24 16:05 8.9 Low 06/20/24 8.9 % Neutrophils 08/19/24 16:05 79.6 06/20/24 90.0 Absolute Granulocytes 08/19/24 16:05 6.87 High 06/20/24 21.87 High % Immature Granulocytes 08/19/24 16:05 0.5 06/20/24 .70 High Abs Immature Granulocytes 08/19/24 16:05 0.04 High 06/20/24 0.16 High % Lymphocytes 08/19/24 16:05 11.6 06/20/24 3.6 Abs Lymphocytes 08/19/24 16:05 1.00 Low 06/20/24 0.87 Low % Monocytes 08/19/24 16:05 7.3 06/20/24 5.6 Abs Monocytes 08/19/24 16:05 0.63 06/20/24 1.36 High % Eosinophils 08/19/24 16:05 0.8 06/20/24 0.0 Abs Eosinophils 08/19/24 16:05 0.07 06/20/24 0.00 Low % Basophils 08/19/24 16:05 0.2 06/20/24 0.1 Abs Basophils 08/19/24 16:05 0.02 06/20/24 0.03 GENERAL CHEMISTRY LATEST RESULTS HISTORICAL RESULTS Sodium 08/19/24 16:05 139 06/20/24 137 Potassium 08/19/24 16:05 3.9 06/20/24 3.8 Chloride 08/19/24 16:05 108 06/20/24 106 CO2 08/19/24 16:05 27 06/20/24 23 Anion gap 08/19/24 16:05 4 Low 06/20/24 12 Glucose Lvl 08/19/24 16:05 120 06/20/24 113 BUN 08/19/24 16:05 14 06/20/24 19 Creatinine, standardized 08/19/24 16:05 1.40 High 06/20/24 1.4 High GFR for 08/19/24 16:05 47 Low GFR non 08/19/24 16:05 39 Low Calcium 08/19/24 16:05 8.6 06/20/24 8.8 Total Protein 08/19/24 16:05 7.0 11/30/23 7.6 g/dL Albumin 08/19/24 16:05 4.4 11/30/23 4.3 g/dL T Bili 08/19/24 16:05 0.48 11/30/23 0.6 mg/dL Alkaline Phosphatase 08/19/24 16:05 69 11/30/23 66 U/L AST-SGOT 08/19/24 16:05 14 11/30/23 19 U/L ALT-SGPT 08/19/24 16:05 15 06/08/23 11 URINALYSIS LATEST RESULTS HISTORICAL RESULTS COLOR 08/19/24 17:15 Colorless 06/07/23 Yellow CLARITY 08/19/24 17:15 Clear 06/07/23 Cloudy Abnormal SPECIFIC GRAVITY 08/19/24 17:15 1.005 06/07/23 1.004 Low UA PH 08/19/24 17:15 7.0 06/07/23 6 UA GLUCOSE 08/19/24 17:15 Negative 06/07/23 Negative UA KETONES 08/19/24 17:15 Negative 06/07/23 Negative BILIRUBIN 08/19/24 17:15 Negative 06/07/23 Negative UA UROBILINOGEN 08/19/24 17:15 <=1 06/07/23 Negative UA BLOOD 08/19/24 17:15 Small Abnormal 06/07/23 Small Abnormal UA LEUKOCYTES 08/19/24 17:15 Moderate Abnormal 06/07/23 Large Abnormal UA NITRITE 08/19/24 17:15 Negative 06/07/23 Negative UA PROTEIN 08/19/24 17:15 30 Abnormal 06/07/23 Negative WBC 08/19/24 17:15 31-50 Abnormal 06/07/23 >30 Abnormal RBC 08/19/24 17:15 0-5 06/07/23 21-30 Abnormal UA Epithelial Cells 08/19/24 17:15 0-10 06/07/23 None Seen UA Bacteria 08/19/24 17:15 Rare 06/07/23 4+ Abnormal UA Mucous 08/19/24 17:15 Present Abnormal 06/07/23 Present Abnormal Diagnostic Results ECG 08/19/2024 Urology Clinic Note Chief Complaint disc uss a right robotic ureteral reimplant History of Present Illness Mrs. Banda is a 53 year old lady here to discuss right ureteral reimplantation due to right distal ureteral stricture. Timeline: - 2019: found to have a 5.9 cm mass in the lower uterus/cervix, bilateral iliac nodes, and 4.5 cm left ovarian cyst. 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 - 10/17/19: Completed EBRT and vaginal brachytherapy - 11/[address]: interval improvement of cervical mass and left external iliac lymph node - 05/13/2020: PET CT demonstrates interval development of posterior pelvic mass and increasing external iliac chain avidity concerning for new disease -05/20/2020: pelvic mass biopsy with SCC, consistent with recurrence - chose not to start chemo -07/07/2020: Initiated Keytruda for recurrent SCC at [facility] -03/09/2021: PET CT: decreased size of right pelvic mass and left external iliac chain nodes -11/11/2021: Keytruda resumed after 2 month break over holidays -02/15/2022: CT CAP with no evidence of disease and stable 4.5cm left ovarian cyst -08/06/2022: CT CAP stopped Keytruda, surveillance - 11/15/2022: NM PET no evidence of disease recurrence - 02/10/2023:NM PET no evidence of disease recurrence She was found to have right distal ureteral obstruction back in 2020 and had a right nephrostomy tube placed at that time. Since then, she's done relatively well but over the last few months has dealt with increased UTIs and clogging. She is currently irrigating the nephrostomy tube to help keep it patent. She has never had a ureteral stent. I independently reviewed and interpreted the images of the CT from 06/2023 and it shows a full right ureter down to the level of the iliacs. Review of Systems Negative unless indicated above Physical Exam Vitals and Measurements T: 36.8 C HR: 67 BP: 125/79 SpO2: 98% HT: 177.8 cm WT: 71.5 kg BMI: 22.6 Constitutional: Well appearing, no acute distress Head: Atraumatic, normocephalic Eyes: Extra ocular movements intact Ears, nose, mouth, throat: Moist mucous membranes, normal external condition. Respiratory: Normal chest rise, no audible wheezing, clear lung sounds Cardiac: Normal rate and rhythm, no obvious murmurs Genitourinary: right nephrostomy tube in place Muskuloskeletal: Normal range of motion. No evidence of clubbing or cyanosis. Neurologic: Alert and oriented x 3. Normal gait. Skin: No rashes or lesions. Psychiatric: Normal mood and affect Clinic Procedure Assessment/Plan 1. Right ureteral obstruction - I had a long conversation with and Mrs. Banda about right ureteral reimplantation - I counseled them that I perform this surgery robotically due to less blood loss, less pain, shorter length of stay, and for the most part better cosmesis. - The goal of the surgery for her would be to get her nephrostomy tube free. - She would have a ureteral stent and catheter in after the surgery. The catheter and nephrostomy tube would likely come out before discharge - The surgery takes about 4 hours and rather than removal of all the scar, we essentially bypass the scar and plug the healthy ureter back into the bladder - Success is 95% - Failure usually happens within the first 6-9 months - Risks: pain, bleeding, infection, ileus, shoulder pain, damage to bowel or blood vessels, stent pain - Alternatives: Keep the nephrostomy tube - Benefits: get free of the nephrostomy tube Her main concern is whether there would be a risk of this surgery activating the cancer and making it come back. I counseled her that I do not think there is any chance. If cancer came back afterwards it would be a complete coincidence but I am going to message Dr. Jones to get his input. Time spent today on this visit including chart review, direct patient interaction ([id number] or [id number]-face): 54 minutes Oliver Taveras MD Reconstructive Urology [facility] Problem List/Past Medical History Ongoing Abnormal EKG Abnormal uterine bleeding Annual physical exam CKD (chronic kidney disease) stage 3, GFR 30-59 ml/min Colon cancer screening Depression with anxiety Fatigue Hypertension Immunotherapy Left shoulder pain Major depressive disorder, recurrent, mild Malignant tumor of cervix Muscle weakness Nephrostomy status Plantar wart of right foot PMDD (premenstrual dysphoric disorder) Polyarthralgia Recurrent cervical cancer Right flank pain Historical Abdominal pain Anemia Constipation in female Melanoma Precordial chest pain Urinary tract infectious disease Vaginal bleeding. Procedure/Surgical History Colonoscopy, flexible; diagnostic, including collection of specimen(s) by brushing or washing, when performed (separate procedure) Service Date: 11/14/2021 BTL eye Nephrostomy tube Medications hydrochlorothiazide-lisinopril(hydrochl orothiazide-lisinopril 12.5 mg-20 mg oral tablet), 1 Tablet(s), Oral, Daily, 1 refills lisinopril(lisinopril 5 mg oral tablet), 5 mg= 1 Tablet(s), Oral, Daily multivitamin with minerals(Adult Multivitamin Gummies) venlafaxine(venlafaxine 225 mg oral tablet, extended release), 1 Tablet(s), Oral, Daily Allergies Rocephin Hives cefTRIAXone Eruption Social History Smoking Status Never smoker Alcohol Frequency:1-2 times per year Has alcohol use interfered with work or home life:No Do you ever drink more than intended:No Has anyone been hurt or at risk by your drinking:No Ready to change:No Concerns about alcohol use in household:No Home/Environment Lives with:Children Living situation:Home/Independent Alcohol abuse in household:No Substance abuse in household:No Smoker in household:No Injuries/Abuse/Neglect in household:No Substance Abuse - Denies Substance Abuse Tobacco Smoking HistoryNever smoker Smokeless TobaccoNo E-Cigarette UseNo Concerns about tobacco use in household:No Does the Pt. visit or live with a smokerNo Is Patient Exposed to E-Cigarette VaporNo Total pack years:0 Previous treatment:None Tobacco/Nicotine CounselingContinue tobacco/nicotine free lifestyle Family History COPD - Chronic obstructive pulmonary disease: Mother. Health Status Family Member(s) Immunizations Vaccine Date Status hepatitis A adult vaccine 08/06/2010 Recorded hepatitis A adult vaccine 04/29/2009 Recorded Health Maintenance Lab Results Diagnostic Results Visit Information Attending Physician: Oliver Taveras MD Referring Physician: Deana Carreon MD Original Referring Provider: Deana Carreno MD Primary Care Physician: Anahi Hawkins MD Visit Date: 08/09/2024 08/09/2024 Urology Clinic Note Chief Complaint Refe rred for nephrostomy clogging History of Present Illness Jonelle Banda is a 53 year old female with history of cervical cancer obstructing the R ureter managed with NT since 2020 referred to urology by Dr. Jones to discuss NT alternatives. The NT is exchanged every 3 months, most recently 06/20/2024. For more than 1 year, she has had issues with the NT clogging with sediment, and had an infection 1 month ago. She has been flushing the NT daily but is concerned about introducing bacteria through the flushes and would like to explore non-NT options. She has previously tried a PCNU tube but found it intolerable. Physical Exam Vitals and Measurements T: 36.9 C HR: 66 BP: 133/83 WT: 71.3 kg BMI: 28.1 General: No acute distress Respiratory: Breaths non-labored : Deferred Assessment/Plan Jonelle Banda is a 53 year old female with history of cervical cancer obstructing the R ureter managed with NT since 2020 referred to urology by Dr. Jones to discuss NT alternatives. For more than 1 year, she has had issues with the NT clogging with sediment, and had an infection 1 month ago. She has been flushing the NT daily but is concerned about introducing bacteria through the flushes and would like to explore non-NT options. CT abdomen 06/07/2024 shows tortuous-appearing R ureter Plan - Nephrostogram with next IR tube change - Will refer to Dr. Taveras for evaluation for robotic ureteral re-implant Attestation by Ev ZHENG, Deana Traore on July 24, 2024 17:11 I have verified the student note and corrections have been made as necessary. I agree with the contents of this note. I independently performed a physical exam and the medical decision-making portion of this service. Problem List/Past Medical History Ongoing Abnormal EKG Abnormal uterine bleeding Annual physical exam CKD (chronic kidney disease) stage 3, GFR 30-59 ml/min Colon cancer screening Depression with anxiety Fatigue Hypertension Immunotherapy Left shoulder pain Major depressive disorder, recurrent, mild Malignant tumor of cervix Muscle weakness Nephrostomy status Plantar wart of right foot PMDD (premenstrual dysphoric disorder) Polyarthralgia Recurrent cervical cancer Right flank pain Historical Abdominal pain Anemia Constipation in female Melanoma Precordial chest pain Urinary tract infectious disease Vaginal bleeding. Procedure/Surgical History Colonoscopy, flexible; diagnostic, including collection of specimen(s) by brushing or washing, when performed (separate procedure) (11/14/2021) BTL eye Nephrostomy tube Medications Inpatient No active inpatient medications Home Adult Multivitamin Gummies hydrochlorothiazide-lisinopril 12.5 mg-20 mg oral tablet, 1 Tablet(s), Oral, Daily, 1 refills lisinopril 5 mg oral tablet, 5 mg= 1 Tablet(s), Oral, Daily venlafaxine 225 mg oral tablet, extended release, 1 Tablet(s), Oral, Daily Allergies Rocephin (Hives) cefTRIAXone (Eruption) Social History Smoking Status Never smoker Alcohol 1-2 times per year, Alcohol use interferes with work or home: No. Drinks more than intended: No. Others hurt by drinking: No. Ready to change: No. Household alcohol concerns: No. Home/Environment Lives with Children. Living situation: Home/Independent. Alcohol abuse in household: No. Substance abuse in household: No. Smoker in household: No. Injuries/Abuse/Neglect in household: No. Substance Abuse - Denies Substance Abuse Tobacco Smoking History: Never smoker. Smokeless Tobacco: No. E-Cigarette Use: No. Household tobacco concerns: No. Does the Pt. visit or live with a smoker? No. Is Patient Exposed to E-Cigarette Vapor? No. Total pack years: 0. Previous treatment: None. Tobacco Counseling: Continue tobacco/nicotine free lifestyle. Family History COPD - Chronic obstructive pulmonary disease: Mother. Immunizations Vaccine Date Status hepatitis A adult vaccine 08/06/2010 Recorded hepatitis A adult vaccine 04/29/2009 Recorded 07/24/2024 Vital Signs Vital Sign Value Date Comments Source Respiratory Rate 16 breaths/min 02/15/2025 14:52:00 [facility] SBP NIBP 141 mm[Hg] 02/15/2025 14:52:00 [facility] DBP NIBP 86 mm[Hg] 02/15/2025 14:52:00 [facility] Heart Rate 75 bpm 02/15/2025 14:52:00 [facility] SpO2 100 % 02/15/2025 14:52:00 [facility] SpO2 97 % 02/15/2025 14:39:00 [facility] SBP NIBP 138 mm[Hg] 02/15/2025 14:39:00 [facility] DBP NIBP 95 mm[Hg] 02/15/2025 14:39:00 [facility] Heart Rate 74 bpm 02/15/2025 14:39:00 [facility] Respiratory Rate 17 breaths/min 02/15/2025 14:39:00 [facility] Report Given to GLORIA Godwin 08/20/2024 00:14:00 [facility] Heart Rate 72 bpm 08/19/2024 23:56:28 [facility] Respiratory Rate 24 08/19/2024 23:56:28 [facility] SpO2 99 % 08/19/2024 23:56:28 [facility] Report Given to GLORIA Godwin 08/19/2024 23:56:00 [facility] Mean NIBP 104 mm[Hg] 08/19/2024 23:45:03 [facility] SBP NIBP 135 mm[Hg] 08/19/2024 23:45:03 [facility] DBP NIBP 84 mm[Hg] 08/19/2024 23:45:03 [facility] Heart Rate 81 bpm 08/19/2024 23:44:58 [facility] Respiratory Rate 20 08/19/2024 23:44:58 [facility] SpO2 100 % 08/19/2024 23:44:58 [facility] Mean NIBP 113 mm[Hg] 08/19/2024 23:30:02 [facility] SBP NIBP 149 mm[Hg] 08/19/2024 23:30:02 [facility] DBP NIBP 92 mm[Hg] 08/19/2024 23:30:02 [facility] Heart Rate 86 bpm 08/19/2024 23:29:59 [facility] Respiratory Rate 20 08/19/2024 23:29:59 [facility] SpO2 98 % 08/19/2024 23:29:59 [facility] Mean NIBP 88 mm[Hg] 08/19/2024 23:15:03 [facility] SBP NIBP 119 mm[Hg] 08/19/2024 23:15:03 [facility] DBP NIBP 70 mm[Hg] 08/19/2024 23:15:03 [facility] Heart Rate 83 bpm 08/19/2024 23:14:57 [facility] Respiratory Rate 17 08/19/2024 23:14:57 [facility] SpO2 99 % 08/19/2024 23:14:57 [facility] Mean NIBP 81 mm[Hg] 08/19/2024 23:00:03 [facility] SBP NIBP 105 mm[Hg] 08/19/2024 23:00:03 [facility] DBP NIBP 66 mm[Hg] 08/19/2024 23:00:03 [facility] Weight (kg) 71.5 kg 08/19/2024 20:31:00 [facility] Temperature (Celsius) 37.3 Jonah 08/19/2024 20:31:00 [facility] SBP NIBP 125 mm[Hg] 08/09/2024 14:53:24 [facility] DBP NIBP 79 mm[Hg] 08/09/2024 14:53:24 [facility] Mean NIBP 94 mm[Hg] 08/09/2024 14:53:24 [facility] Heart Rate 67 bpm 08/09/2024 14:53:24 [facility] SpO2 98 % 08/09/2024 14:53:24 [facility] Temperature (Celsius) 36.8 Jonah 08/09/2024 14:53:24 [facility] Weight (kg) 71.5 kg 08/09/2024 14:53:24 [facility] Height (cm) 177.8 cm 08/09/2024 14:53:24 [facility] BMI 22.6 kg/m2 08/09/2024 14:53:24 [facility] [facility] Temperature (Celsius) 36.9 Jonah 07/24/2024 16:40:00 [facility] Heart Rate 66 bpm 07/24/2024 16:40:00 [facility] SBP NIBP 133 mm[Hg] 07/24/2024 16:40:00 [facility] DBP NIBP 83 mm[Hg] 07/24/2024 16:40:00 [facility] Height (cm) 159.3 cm 07/24/2024 16:40:00 [facility] Weight (kg) 71.3 kg 07/24/2024 16:40:00 [facility] BMI 28.1 kg/m2 07/24/2024 16:40:00 [facility] BSA Addy 1.74 07/24/2024 16:40:00 [facility] Encounters Location Location Details Encounter Type Encounter Number Reason For Visit Attending Provider ADM Date DC Date Status Source [facility] [id number] Deana Carreno 07/24 16:13 :22 07/25 04:59 :59 [facility] [id number] Oliver Taveras 08/09 14:30 :36 08/10 04:59 :59 [facility] Emergency [id number] Vic Brothers 08/19 19:30 :30 08/20 00:14 :00 [facility] Radiology Interventi onal Radiology Day Surgery [id number] Johnnie Cortes 09/12 16:29 :16 09/13 05:59 :59 [facility] Radiology Interventi onal Radiology Day Surgery [id number] Johnnie Cortes 12/24 16:44 :07 12/25 05:59 :59 [facility] Radiology Interventi onal Radiology Day Surgery [id number] Monica Pizarro 02/15 14:08 :25 02/16 04:59 :59 [facility] Observation [id number] Vic Brothers 04/10 21:11 :31 04/12 02:01 :00 [facility] Gynecology Oncology Clinic [id number] Paramjit Jones 05/16 19:24 :28 05/17 04:59 :59 [facility] Outpatient [id number] Outside Ordering Physician 05/31 14:32 :01 06/01 04:59 :59 [facility] NextGen Rad MRI Outpatient [id number] Paramjit Jones 06/13 15:58 :18 06/14 04:59 :59 [facility] Diagnost ic Imaging Next Gen [facility] [id number] annual Anahi Banina Cancel [facility] Kumar [facility]OO [facility] [id number] [facility] Out[facility] [id number] 6 month follow-u p [facility] V[facility] [id number] 12W F/U Paramjit Jones Jory [facility] PL10 PL10 Outpatient [id number] Stephy Camacho 08/18 23:59 :59 Discharg ed [facility] OUTPATIENT [id number] 12W F/U Paramjit Matthewsjonah [facility] PL10 PL10 Outpatient [id number] Stephy Coplin 06/09 23:59 :59 Discharg ed [facility] NO TECHBILL [id number] 531; TELE VISIT;12 W F/U Paramjit Jones Nadyacel [facility] Care [id number] Paramjit Jones Jory [facility] DIAGNOSTIC TEST [id number] [address];St age IIIC1 cervical nadya Croley [facility] DIAGNOSTIC TEST [id number] Paramjit Jones Cancel [facility] DIAGNOSTIC TEST [id number] follow up cervical cancer, pulmonar y nod Paramjit Corley [facility] PL10 PL10 Outpatient [id number] [facility] 23:59 :59 Discharg ed [facility] PL10 PL10 [facility] [id number] [facility] 23:59 :59 Discharg ed [facility] PL10 PL10 Outpatient [id number] [facility] 07/01 23:59 :59 Discharg ed [facility] PL10 Outpatient [id number] 10/09 23:59 :59 Discharg ed [facility] [id number] Belia Medina [facility] PL10 PL10 Outpatient [id number] 23:59 :59 Discharg ed [facility] OUT[facility]IENT [id number] 6WEEK POST-OP F/U Paramjit Jones [facility] Outpatient [id number] 09/08 23:59 :59 Discharg ed [facility] PL10 PL10 Outpatient [id number] [facility] 01/15 23:59 :59 Discharg ed [facility] PL10 PL10 Outpatient [id number] [facility] 11/27 23:59 :59 Discharg ed [facility] PL10 PL10 Outpatient [id number] 09/07 23:59 :59 Discharg ed [facility] PL10 PL10 Outpatient [id number] [facility] 09/29 23:59 :59 Discharg ed [facility] PL10 PL10 Outpatient [id number] [facility] 03/11 23:59 :59 Discharg ed [facility] PL10 PL10 Outpatient [id number] 08/08 23:59 :59 Discharg ed [facility] PL10 PL10 Outpatient [id number] 23:59 :59 Discharg ed [facility] Oncology Clinic PL10 PL10 Outpatient [id number] 08/07 23:59 :59 Discharg ed [facility] Oncology Clinic PL10 PL10 Outpatient [id number] 08/08 23:59 :59 Discharg ed [facility] Oncology Clinic [facility]GS [facility] Outpatient [id number] 08/07 23:59 :59 Discharg ed [facility] General Surgery Procedures Procedure Code Date Perfomer Comments Source Nephrostomy tube [facility] General Surgery BTL [facility] eye [facility] Eye surgery [id number] [facility] [place] [facility] Tubal ligation [id number] [facility] [place] [facility] Plan of Care Plan of Care Date Source No data available for this section 06/14/2025 [facility] Diagnostic Imaging Next Gen No data available for this section 06/01/2025 [facility] Social History Social History Date Source No data available for this section 06/14/2025 [facility] Diagnostic Imaging Next Gen No data available for this section 06/01/2025 [facility] No data available for this section 05/17/2025 [facility] No data available for this section 04/12/2025 [facility] No data available for this section 02/16/2025 [facility] No data available for this section 12/25/2024 [facility] No data available for this section 09/13/2024 [facility] No data available for this section 08/20/2024 [facility] No data available for this section 08/10/2024 [facility] No data available for this section 07/25/2024 [facility]
--- OUTSIDE RECORDS SUMMARY | 2025-06-22 14:17 | XMS_ITS | CCD ---
Author Name Interface, [id number] [address] Organization [facility] [place] [address] Care Team Providers Care Jitterbug Operator Name Role Phone Deedee ZHENG, Paramjit Worthington Unavailable Unavailable Allergies and Adverse Reactions Medication/Group Name Reaction Severity Date No known allergies Reason for Visit Chemo C5D1 Bone Marrow (Med Onc) - copied - copied Functional Status Date Name Score 10/03/2019 [facility] performance status - grade 1 1 10/01/2019 [facility] performance status - grade 1 1 10/11/2019 [facility] performance status - grade 0 0 10/11/2019 [facility] performance status - grade 1 1 Medications Date Name Route Dose Frequency Instructions Start Date End Date Status Hydrocodone-Negro taminophen Oral 5 mg-325 mg po 1.0 tablet every 4 hours prn pain active Venlafaxine Oral 24 hr Cap po 1.0 capsule,ext ended release 24hr daily active Ibuprofen Oral po tablet every 8 hours active Problems Diagnosis Status Date of Diagnosis Resolution Date Non-smoker Active Cervical cancer Active Social History Date Name Value 08/28/2019 Sex Female
[2025-06-22 14:49] LABS: Alanine Aminotransferase 16 U/L (6-35); Albumin Level 4.2 g/dL (3.5-5.1); Alkaline Phosphatase 72 U/L (38-126); Anion Gap 9 mmol/L (4-12); Aspartate Amino Transferase 24 U/L (14-36); Bilirubin,Total 0.5 mg/dL (0.2-1.3); Blood Urea Nitrogen 14 mg/dL (7-17); Calcium 8.9 mg/dL (8.4-10.2); Carbon Dioxide 25 mmol/L (22-30); Chloride 105 mmol/L (98-107); Estimated CRCL calculation 43 ml/min; Estimated Glomerular Filt Rate 46; Glucose 116 mg/dL (65-110); Potassium 4.2 mmol/L (3.4-5.0); Sodium 139 mmol/L (137-145); Total Protein 7.3 g/dL (6.3-8.2)
[2025-06-22] MEDS: ONDANSETRON INJ 4 MG/2 ML VIAL IV PUSH (15:03)
[2025-06-22] MEDS: HYDROmorphone HCL INJ (*CRX) 1 MG/ML SYR 0.5 MG IV PUSH (15:03)
== END 2025-06-22 15:54 | disposition home or self-care (01) ==
PROVIDERS: Family Medicine; Emergency Provider Emergency Medicine
DX: T83.092A Other mechanical complication of nephrostomy catheter, initial encounter (principal); Z85.528 Personal history of other malignant neoplasm of kidney; Y84.6 Urinary catheterization as the cause of abnormal reaction of the patient, or of later complication, without mention of misadventure at the time of the procedure
CPT/HCPCS: 36415; 74176; 80053; 81001; 85025; 96374; 99284; J1171; J2405